=== PATIENT | female | born 1980 | race Caucasian/White ===

== ENCOUNTER 2016-06-06 09:02 | Emergency (ER) | payer OTHER ==
[~2016-06-06] VITALS: Ht 162.6 cm; Wt 74.8 kg
[~2016-06-06 09:02] MED LIST: AMIT25TA PO; CEPH-264 PO; DICY20TA30 PO; METR500T PO; ONDA4TAB10 SL; SUMA50TA3 PO
[2016-06-06] MEDS ORDERED: BUPR300T4 PO (09:17)
[2016-06-06] MEDS ORDERED: PHEN37.5 PO (09:17)
[2016-06-06] MEDS ORDERED: TRAZ50TA15 PO (09:17)
[2016-06-06] MEDS ORDERED: HYDROMORPHONE 2 MG/ML VIAL. ONE (09:23)
[2016-06-06] MEDS ORDERED: ONDANSETRON PF 4 MG/2 ML VIAL. IV ONE (09:30)
[2016-06-06] MEDS: HYDROMORPHONE 2 MG/ML VIAL. IV PRN ×2 (09:30→10:50)
[2016-06-06] MEDS ORDERED: IV NORMAL SALINE 1000ML BAG 1,000 ML IV ONE (09:30)
[2016-06-06 09:31] LABS: BASO % 1 % (0-3); EOS % 0 % (0-3); HEMATOCRIT 37.8 % (36.0-47.0); HEMOGLOBIN 12.9 g/dL (12.0-15.5); LYMPH # 1.4 x10^3/uL (1.0-4.8); LYMPH % 19 % (24-48); MEAN CORPUSCULAR HEMOGLOBIN 29 pg (25-35); MEAN CORPUSCULAR HGB CONC 34 g/dL (31-37); MEAN CORPUSCULAR VOLUME 85 fL (79-100); MONO % 4 % (0-9); NEUT % 76 % (31-73); PLATELET COUNT 272 x10^3/uL (140-400); RED BLOOD COUNT 4.43 x10^6/uL (3.50-5.40); WHITE BLOOD COUNT 7.6 x10^3/uL (4.0-11.0)
[2016-06-06 09:45] LABS: CALCIUM 9.2 mg/dL (8.5-10.1); CREATININE 0.7 mg/dL (0.6-1.0); GFR 95.8; POTASSIUM 3.8 mmol/L (3.5-5.1)
[2016-06-06 09:53] LABS: ALBUMIN 3.8 g/dL (3.4-5.0); DIRECT BILIRUBIN 0.1 mg/dL (0.0-0.2); TOTAL BILIRUBIN 0.9 mg/dL (0.2-1.0); TOTAL PROTEIN 7.8 g/dL (6.4-8.2)
--- NOTE | 2016-06-06 10:42 | PHYS DOC ---
Past Medical History Past Medical History: Constipation, Kidney Stone, Migraines Past Surgical History: Cholecystectomy, Tubal ligation Additional Past Surgical Histo: partial thyroidectomy,d c, ablation,kidney stone removal Alcohol Use: Occasionally Drug Use: None Adult General Chief Complaint Chief Complaint: FLANK PAIN HPI HPI 35-year-old female presenting to the emergency department with right-sided flank pain that is sharp severe radiating into the groin. It started this morning around 7 AM. She comes by EMS today and has received 100 g of fentanyl and 4 mg of Zofran prior to arrival. This did improve her pain. She denies nausea vomiting fevers chills. Review of systems is negative for chest pain shortness of breath. She denies polyuria dysuria or hematuria. She denies vaginal bleeding or being . All other review of systems is negative unless otherwise noted in history of present illness. Review of Systems Review of Systems SEE ABOVE. Current Medications Current Medications Current Medications Medications (Trade) Dose Ordered Sig/Marisol Start Time Stop Time Status Last Admin Dose Admin Hydromorphone HCl (Dilaudid) 2 mg STK-MED ONCE 06/06/16 09:23 06/06/16 09:24 DC Ondansetron HCl 4 mg 4 mg 1X ONCE 06/06/16 09:30 06/06/16 09:31 DC 06/06/16 09:27 4 MG Sodium Chloride (Iv Sodium Chloride 0.9% 1000ml Bag) 1,000 ml @ 1,000 mls/hr 1X ONCE 06/06/16 09:30 06/06/16 10:29 DC 06/06/16 09:32 1,000 MLS/HR Allergies Allergies Allergies Coded Allergies Type Severity Reaction Last Updated Verified ciprofloxacin Allergy Unknown Unknown 06/06/16 Yes sulfamethoxazole Allergy Unknown Unknown 06/06/16 Yes trimethoprim Allergy Unknown Unknown 06/06/16 Yes Physical Exam Physical Exam Constitutional: Well developed, well nourished, no acute distress, non-toxic appearance. [] HENT: Normocephalic, atraumatic, bilateral external ears normal, oropharynx moist, no oral exudates, nose normal. [] Eyes: PERRLA, EOMI, conjunctiva normal, no discharge. Neck: Normal range of motion, no tenderness, supple, no stridor. [] Cardiovascular:Heart rate regular rhythm, no murmur Lungs & Thorax: Bilateral breath sounds clear to auscultation Abdomen: Soft nontender abdomen without rebound tenderness or guarding present. Negative McBurneys point. Negative Guajardo sign. No ecchymosis present. Skin: Warm, dry, no erythema, no rash. Back: No tenderness, mild right CVA tenderness. No ecchymosis lacerations abrasions or erythema of the back or abdomen Extremities: No tenderness, no cyanosis, no clubbing, ROM intact, no edema. Neurologic: Alert and oriented X 3, normal motor function, normal sensory function, no focal deficits noted. [] Psychologic: Affect normal, judgement normal, mood normal. Current Patient Data Vital Signs Vital Signs Date Time Temp Pulse Resp B/P Pulse Ox O2 Delivery O2 Flow Rate FiO2 06/06/16 10:50 18 06/06/16 09:02 72 113/66 97 Room Air Lab Values Laboratory Tests Test 06/06/16 09:09 06/06/16 09:29 White Blood Count 7.6x10^3/uL (4.0-11.0) Red Blood Count 4.43x10^6/uL (3.50-5.40) Hemoglobin 12.9g/dL (12.0-15.5) Hematocrit 37.8% (36.0-47.0) Mean Corpuscular Volume 85fL (79-100) Mean Corpuscular Hemoglobin 29pg (25-35) Mean Corpuscular Hemoglobin Concent 34g/dL (31-37) Red Cell Distribution Width 14.0% (11.5-14.5) Platelet Count 272x10^3/uL (140-400) Neutrophils (%) (Auto) 76% (31-73) H Lymphocytes (%) (Auto) 19% (24-48) L Monocytes (%) (Auto) 4% (0-9) Eosinophils (%) (Auto) 0% (0-3) Basophils (%) (Auto) 1% (0-3) Neutrophils # (Auto) 5.7x10^3uL (1.8-7.7) Lymphocytes # (Auto) 1.4x10^3/uL (1.0-4.8) Monocytes # (Auto) 0.3x10^3/uL (0.0-1.1) Eosinophils # (Auto) 0.0x10^3/uL (0.0-0.7) Basophils # (Auto) 0.0x10^3/uL (0.0-0.2) Sodium Level 139mmol/L (136-145) Potassium Level 3.8mmol/L (3.5-5.1) Chloride Level 103mmol/L (98-107) Carbon Dioxide Level 22mmol/L (21-32) Anion Gap 14 (6-14) Blood Urea Nitrogen 12mg/dL (7-20) Creatinine 0.7mg/dL (0.6-1.0) Estimated GFR (Cockcroft-Gault) 95.8 Glucose Level 127mg/dL (70-99) H Calcium Level 9.2mg/dL (8.5-10.1) Total Bilirubin 0.9mg/dL (0.2-1.0) Direct Bilirubin 0.1mg/dL (0.0-0.2) Aspartate Amino Transferase (AST) 14U/L (15-37) L Alanine Aminotransferase (ALT) 19U/L (14-59) Alkaline Phosphatase 77U/L (46-116) Total Protein 7.8g/dL (6.4-8.2) Albumin 3.8g/dL (3.4-5.0) Lipase 108U/L (73-393) POC Urine HCG, Qualitative Hcg negative (Negative) Laboratory Tests 06/06/16 09:09 Laboratory Tests 06/06/16 09:09 EKG EKG [] Radiology/Procedures Radiology/Procedures [] Course & Med Decision Making Course & Med Decision Making Pertinent Labs and Imaging studies reviewed. (See chart for details) [] 35-year-old female presenting with right-sided flank pain. Triage vital signs pulse normal. Blood pressure normal. Respiratory rate recorded at 28 however this is because the patient appears to be in mild pain. The patient is not having difficulty breathing. Otherwise pertinent physical exam findings shows mild right CVA tenderness with nontender appendix. CBC unremarkable. Chemistry panel unremarkable. test negative. CT abdomen and pelvis performed. 1mm nephrolithiasis seen at the UVJ. On reevaluation the patient's symptoms had improved. She was provided IV saline hydromorphone and Zofran in the emergency department. She was subsequent discharged home to follow up with her PCP with oral pain medication for symptomatic care. Dragon Disclaimer Dragon Disclaimer This electronic medical record was generated, in whole or in part, using a voice recognition dictation system. Departure Departure Impression: Primary Impression: Flank pain Additional Impressions: Flank pain, acute Right flank pain Disposition: 01 HOME, SELF-CARE Condition: STABLE Referrals: NAVDEEP LLANES MD (PCP) Patient Instructions: Flank Pain Additional Instructions: Thank you for allowing us to participate in your care today. Followup with your primary care physician in 3 days if your symptoms do not improve. If you do not have a primary care provider you can ask for a list of our primary care providers. Return to the emergency department you have any new or concerning findings. This should be evaluated by the primary care physician and any necessary consulting services for continued management within a few days after discharge. Return to emergency room if you have any new or concerning symptoms including but not limited to fever, chills, nausea, vomiting, intractable pain, any new rashes, chest pain, shortness of air, uncontrolled bleeding, difficulty breathing, and/or vision loss. You may have been prescribed medication that can change in your level of thinking and ability to operate machinery. These medications include hydrocodone and Ativan. Also, Benadryl has been known to do this as well. Be sure to check with your pharmacist and ask if the medications you've prescribed can affect your level of consciousness. I recommend not operating heavy machinery or driving while on medication such as these. Scripts Hydrocodone Bit/Acetaminophen (Hydrocodone-Apap 5-325 )1 Each Tablet2 Tab PO PRN Q6HRS PRN PAIN #15 TAB Be careful as this medication may cause you to be drowsy or tired. Do not drive on this medication. Prov:FORTINO BELCHER MD 06/06/16 Problem Qualifiers FORTINO EBLCHER MD Jun 06, 2016 10:42
[2016-06-06 10:51] VITALS: BP 118/56
[2016-06-06 11:05] LABS: BILIRUBIN,URINE NEGATIVE (NEG); GLUCOSE,URINE NEGATIVE (NEG); NITRITE,URINE NEGATIVE (NEG); PROTEIN,URINE NEGATIVE (NEG-TRACE); UROBILINOGEN,URINE 0.2 mg/dL (0.2 mg/dL)
--- NOTE | 2016-06-06 11:20 | RAD ---
Indication bilateral flank pain. Right lower quadrant pain. Duration of symptoms 3 hours. History of kidney stones and frequent urinary tract infections. Axial images through the abdomen and pelvis were obtained. Examination was tailored for the detection of renal and/or ureteral calculi. No IV or gastrointestinal contrast was administered. Note is made of a prior examination 11/16/2015. The lung bases are clear. The liver and spleen appear unremarkable. Clips are noted in the gallbladder fossa. No pancreatic abnormality is seen. The adrenal glands appear unremarkable. There is a solitary 4 mm left renal calculus similar to the previous exam. On the right there are no renal calculi. There is, however, moderately severe hydronephrosis and hydroureter to the level of a 1 to 2 mm calculus in the distal right ureter just above or at the UVJ. No additional finding is seen in the abdomen. In the pelvis the appendix is seen and appears unremarkable. An additional finding in the pelvis apart from the distal right ureteral calculus is not seen. IMPRESSION: Minute 1 to 2 mm right ureteral calculus at or near the UVJ with associated moderately high-grade obstructive uropathy. Unchanged left ureteral calculus PQRS Compliance Statement: One or more of the following individualized dose reduction techniques were utilized for this examination: 1. Automated exposure control 2. Adjustment of the mA and/or kV according to patient size 3. Use of iterative reconstruction technique
[2016-06-06 11:28] LABS: BACTERIA,URINE FEW /HPF (0-FEW); SQUAMOUS EPITHELIAL CELL,UR MANY /LPF
[2016-06-06] MEDS ORDERED: HYDR-2666 PO (11:30)
[2016-06-06] MEDS ORDERED: ONDA4TAB10 SL (11:33)
== END 2016-06-06 12:16 | disposition home or self-care (01) ==
LOC: ER 09:02
DX: R10.31 Right lower quadrant pain (principal); G43.909 Migraine, unspecified, not intractable, without status migrainosus; Z88.1 Allergy status to other antibiotic agents; Z88.2 Allergy status to sulfonamides; Z90.49 Acquired absence of other specified parts of digestive tract; Z87.442 Personal history of urinary calculi
CPT/HCPCS: 36415; 74176; 80048; 80076; 81001; 81025; 83690; 85027; 87086; 96361; 96374; 96375; 96376; 99285; J1170; J2405; J7030

== ENCOUNTER → 2016-06-09 | Outpatient (CLI) | payer OTHER ==
[2016-06-06 10:51] VITALS: BP 118/56
[~2016-06-09] MED LIST changes: +BUPR300T4 PO; +HYDR-2666 PO; +PHEN37.5 PO; +TRAZ50TA15 PO
[2016-06-09 11:15] LABS: BASO % 1 % (0-3); EOS % 1 % (0-3); HEMATOCRIT 40.1 % (36.0-47.0); LYMPH # 1.7 x10^3/uL (1.0-4.8); LYMPH % 25 % (24-48); MEAN CORPUSCULAR HEMOGLOBIN 29 pg (25-35); MEAN CORPUSCULAR HGB CONC 32 g/dL (31-37); MEAN CORPUSCULAR VOLUME 88 fL (79-100); MONO % 5 % (0-9); NEUT % 70 % (31-73); PLATELET COUNT 282 x10^3/uL (140-400); RED BLOOD COUNT 4.54 x10^6/uL (3.50-5.40); RED CELL DISTRIBUTION WIDTH 14.1 % (11.5-14.5); WHITE BLOOD COUNT 7.1 x10^3/uL (4.0-11.0)
[2016-06-09 11:34] LABS: CHOLESTEROL/HDL RATIO 4.3
[2016-06-09 11:44] LABS: FREE T4 1.13 ng/dL (0.76-1.46)
== END | disposition home or self-care (01) ==
LOC: LAB 10:53
PROVIDERS: ATTEND Obstetrics & Gynecology
DX: Z01.411 Encounter for gynecological examination (general) (routine) with abnormal findings (principal); N93.8 Other specified abnormal uterine and vaginal bleeding
CPT/HCPCS: 36415; 80061; 84439; 84443; 85027

== ENCOUNTER → 2016-10-15 | Outpatient (CLI) | payer OTHER ==
[~2016-10-15] MED LIST changes: -HYDR-2666 PO; +HYDR-2758 PO
--- NOTE | 2016-10-15 17:55 | KCIC ---
MRI Brain without contrast History: Worsening migraine headaches in recent months Technique: Multiplanar, multisequential noncontrast MR imaging was performed of the brain. Contrast: None Comparison: None Findings: There is no evidence of an acute infarct or cytotoxic edema. The ventricles, sulci, and cisterns are within normal limits in size and configuration. There is no significant midline shift, mass effect, or focal abnormal extra-axial fluid collection. There are a few scattered small foci of T2 and FLAIR hyperintense signal abnormality of the bifrontal deep white matter. There is no significant hemosiderin deposition of the brain parenchyma. There is prominent perivascular space of the inferior left basal ganglia. There is preservation of the major intracranial flow-voids at the skull base. The mastoid air cells are aerated. The cerebellar tonsils are normal in location. There is no significant abnormality of the pineal gland or pituitary gland. Paranasal sinuses are overall aerated. There is preserved marrow signal of the clivus. Impression: 1. There are a few scattered small foci of T2 and FLAIR hyperintense signal of the bifrontal white matter. White matter changes can be seen in patients with migraine headaches. Electronically signed by: Jose Luis Zavala MD (10/15/2016 5:52 PM) [facility]
== END | disposition home or self-care (01) ==
LOC: KCIC MRI 16:58
PROVIDERS: ATTEND Internal Medicine
DX: G43.909 Migraine, unspecified, not intractable, without status migrainosus (principal); R90.82 White matter disease, unspecified
CPT/HCPCS: 70551

== ENCOUNTER → 2017-04-21 | Outpatient (CLI) | payer OTHER ==
[2017-04-21 11:12] LABS: ADD MAN DIFF? NO
[2017-04-21 11:17] LABS: BASO # 0.1 x10^3/uL (0.0-0.2); BASO % 1 % (0-3); EOS # 0.1 x10^3/uL (0.0-0.7); EOS % 1 % (0-3); HEMATOCRIT 36.7 % (36.0-47.0); HEMOGLOBIN 12.2 g/dL (12.0-15.5); LYMPH # 2.3 x10^3/uL (1.0-4.8); LYMPH % 29 % (24-48); MEAN CORPUSCULAR HEMOGLOBIN 29 pg (25-35); MEAN CORPUSCULAR HGB CONC 33 g/dL (31-37); MEAN CORPUSCULAR VOLUME 86 fL (79-100); MONO # 0.4 x10^3/uL (0.0-1.1); MONO % 5 % (0-9); NEUT % 64 % (31-73); PLATELET COUNT 266 x10^3/uL (140-400); RED BLOOD COUNT 4.25 x10^6/uL (3.50-5.40); RED CELL DISTRIBUTION WIDTH 13.9 % (11.5-14.5); WHITE BLOOD COUNT 7.8 x10^3/uL (4.0-11.0)
[2017-04-21 11:46] LABS: FREE T4 1.11 ng/dL (0.76-1.46)
== END | disposition home or self-care (01) ==
LOC: LAB 10:54
DX: E03.9 Hypothyroidism, unspecified (principal); N93.9 Abnormal uterine and vaginal bleeding, unspecified
CPT/HCPCS: 36415; 84439; 84443; 85025

== ENCOUNTER 2017-05-27 07:09 | Observation (INO) | payer OTHER ==
[~2017-05-27 07:09] MED LIST changes: -AMIT25TA PO; -BUPR300T4 PO; -CEPH-264 PO; -DICY20TA30 PO; -HYDR-2758 PO; +LIDOCAINE 1% PF 2 ML VIAL. ID; +LIDOCAINE 1%/EPI 1:100,000 20 ML VIAL.; -METR500T PO; +MORPHINE SULFATE 4 MG/ML DISP.SYRIN. IV; -ONDA4TAB10 SL; +ONDANSETRON PF 4 MG/2 ML VIAL. IV; -PHEN37.5 PO; -SUMA50TA3 PO; +SURGICEL HEMOSTAT 4X8 EACH.; -TRAZ50TA15 PO; +fentaNYL PF VIAL 100 MCG/2 ML VIAL IV
[2017-05-27 07:31] LABS: NEG OBC UR NEG; POS OBC UR POS; U PREG PATIENT NEGATIVE (NEG)
[2017-05-27] MEDS: IV RINGERS,LACTATED 1000ML 1,000 ML IV ×2 (07:47→11:24)
[2017-05-27 07:48] LABS: ADD MAN DIFF? NO
[2017-05-27] MEDS: SCOPOLAMINE 1.5MG PATCH. TD (07:48)
[2017-05-27 07:52] LABS: BASO % 1 % (0-3); EOS # 0.1 x10^3/uL (0.0-0.7); EOS % 1 % (0-3); HEMATOCRIT 37.7 % (36.0-47.0); HEMOGLOBIN 12.4 g/dL (12.0-15.5); LYMPH # 1.5 x10^3/uL (1.0-4.8); LYMPH % 26 % (24-48); MEAN CORPUSCULAR HEMOGLOBIN 29 pg (25-35); MEAN CORPUSCULAR HGB CONC 33 g/dL (31-37); MEAN CORPUSCULAR VOLUME 87 fL (79-100); MONO # 0.5 x10^3/uL (0.0-1.1); MONO % 9 % (0-9); NEUT # 3.6 x10^3uL (1.8-7.7); NEUT % 64 % (31-73); PLATELET COUNT 240 x10^3/uL (140-400); RED BLOOD COUNT 4.35 x10^6/uL (3.50-5.40); RED CELL DISTRIBUTION WIDTH 13.6 % (11.5-14.5); WHITE BLOOD COUNT 5.7 x10^3/uL (4.0-11.0)
[2017-05-27] MEDS ORDERED: ceFAZolin 2GM PREMIX 2 GM/50 ML BAG IV (08:00)
[2017-05-27] MEDS ORDERED: SEVOFLURANE 61 TO 120 MINUTES. IH (08:32)
[2017-05-27] MEDS ORDERED: GLYCOPYRROLATE 1 MG/5 ML VIAL. (08:33)
[2017-05-27] MEDS ORDERED: MIDAZOLAM HCL/PF 2 MG/2 ML VIAL. (08:33)
[2017-05-27] MEDS ORDERED: fentaNYL PF VIAL 100 MCG/2 ML VIAL (08:33)
[2017-05-27] MEDS ORDERED: ROCURONIUM 50 MG/5 ML VIAL. (08:33)
[2017-05-27] MEDS ORDERED: NEOSTIGMINE 10 MG/10 ML VIAL. (08:33)
[2017-05-27] MEDS: BUPIVACAINE-EPI 0.25%-1:200000 50 ML VIAL. (10:21)
[2017-05-27] MEDS: ESTROGENS, CONJ VAGINAL CREAM 30GM TUBE. (10:50)
[2017-05-27] MEDS ORDERED: diphenhydrAMINE HCL 25 MG CAPSULE PO (11:15)
[2017-05-27] MEDS ORDERED: PROCHLORPERAZINE 10 MG/2 ML VIAL. IV (11:15)
[2017-05-27] MEDS ORDERED: ONDANSETRON PF 4 MG/2 ML VIAL. IV (11:15)
[2017-05-27] MEDS ORDERED: CALCIUM CARBONATE 500 MG TAB.CHEW PO (11:15)
[2017-05-27] MEDS ORDERED: 0.9 % SODIUM CHLORIDE 10 ML DISP.SYRIN. IV (11:15)
[2017-05-27] MEDS ORDERED: diphenhydrAMINE 50 MG/ML VIAL IV (11:15)
[2017-05-27] MEDS ORDERED: ZOLPIDEM 5 MG TABLET. PO (11:15)
[2017-05-27] MEDS ORDERED: DEXTROSE 50% 25 GM / 50ML DISP.SYRIN. IV (11:15)
[2017-05-27] MEDS: PROCHLORPERAZINE 10 MG/2 ML VIAL. IV (11:24)
[2017-05-27] MEDS: fentaNYL PF VIAL 100 MCG/2 ML VIAL IV ×3 (11:25→12:57)
[2017-05-27] MEDS: GABAPENTIN 300 MG CAPSULE. PO ×2 (14:22→22:50)
[2017-05-27] MEDS: SIMETHICONE 80 MG TAB.CHEW PO (14:22)
[2017-05-27] MEDS: KETOROLAC 30 MG/ML INJ. IV (14:23)
[2017-05-27] MEDS: oxyCODONE/APAP 5/325 1 TAB TABLET PO ×2 (14:24→19:27)
[2017-05-28] MEDS: GABAPENTIN 300 MG CAPSULE. PO (06:10)
[2017-05-28 06:11] LABS: ADD MAN DIFF? NO
[2017-05-28] MEDS: oxyCODONE/APAP 5/325 1 TAB TABLET PO ×3 (06:11→13:08)
[2017-05-28 06:25] LABS: BASO % 0 % (0-3); EOS % 0 % (0-3); HEMATOCRIT 33.5 % (36.0-47.0); HEMOGLOBIN 11.3 g/dL (12.0-15.5); LYMPH # 2.1 x10^3/uL (1.0-4.8); LYMPH % 20 % (24-48); MEAN CORPUSCULAR HEMOGLOBIN 29 pg (25-35); MEAN CORPUSCULAR HGB CONC 34 g/dL (31-37); MEAN CORPUSCULAR VOLUME 87 fL (79-100); MONO # 0.7 x10^3/uL (0.0-1.1); MONO % 6 % (0-9); NEUT # 7.9 x10^3uL (1.8-7.7); NEUT % 73 % (31-73); PLATELET COUNT 248 x10^3/uL (140-400); RED BLOOD COUNT 3.84 x10^6/uL (3.50-5.40); RED CELL DISTRIBUTION WIDTH 13.8 % (11.5-14.5); WHITE BLOOD COUNT 10.8 x10^3/uL (4.0-11.0)
[2017-05-28] MEDS: SIMETHICONE 80 MG TAB.CHEW PO (08:05)
== END 2017-05-28 14:39 | disposition home or self-care (01) ==
LOC: SURG 07:09 → 3 NORTH 12:04
DX: D25.9 Leiomyoma of uterus, unspecified (principal); N94.6 Dysmenorrhea, unspecified; N83.202 Unspecified ovarian cyst, left side; N83.201 Unspecified ovarian cyst, right side
CPT/HCPCS: 36415; 81025; 85025; 86850; 86900; 86901; 88307; 96374; 96375; A4215; G0378; G0379; J0690; J0780; J1885; J2250; J2710; J3010; J3490; J7030; J7120

== ENCOUNTER → 2017-09-06 | Outpatient (CLI) | payer OTHER ==
[2017-09-06 14:08] LABS: ALBUMIN 3.8 g/dL (3.4-5.0); ALBUMIN/GLOBULIN RATIO 0.9 (1.0-1.7); ALK PHOS 102 U/L (46-116); ALT (SGPT) 20 U/L (14-59); ANION GAP 7 (6-14); AST (SGOT) 13 U/L (15-37); BLOOD UREA NITROGEN 16 mg/dL (7-20); BUN/CREATININE RATIO 20 (6-20); CALCIUM 9.1 mg/dL (8.5-10.1); CARBON DIOXIDE 29 mmol/L (21-32); CHLORIDE 103 mmol/L (98-107); CHOLESTEROL 233 mg/dL (0-200); CREATININE 0.8 mg/dL (0.6-1.0); GFR 81.2; GLUCOSE 99 mg/dL (70-99); HDLC 44 mg/dL (40-60); LDLC 159 mg/dL (0-100); NON-HDL CHOLESTEROL 189 mg/dL (0-129); POTASSIUM 4.1 mmol/L (3.5-5.1); SODIUM 139 mmol/L (136-145); TOTAL BILIRUBIN 0.5 mg/dL (0.2-1.0); TOTAL PROTEIN 8.1 g/dL (6.4-8.2); TRIGLYCERIDES 151 mg/dL (0-150); VLDLC 30 mg/dL (0-40)
[2017-09-06 14:09] LABS: CHOLESTEROL/HDL RATIO 5.3
[2017-09-06 14:21] LABS: THYROID STIM HORMONE (TSH) 0.738 uIU/mL (0.358-3.74)
[2017-09-06 14:21] LABS: FREE T4 1.11 ng/dL (0.76-1.46)
[2017-09-06 15:19] LABS: BILIRUBIN,URINE NEGATIVE (NEG); CLARITY,URINE CLEAR; COLOR,URINE YELLOW; GLUCOSE,URINE NEGATIVE (NEG); NITRITE,URINE NEGATIVE (NEG); PROTEIN,URINE NEGATIVE (NEG-TRACE); UROBILINOGEN,URINE 0.2 mg/dL (0.2 mg/dL)
[2017-09-06 15:31] LABS: BACTERIA,URINE MANY /HPF (0-FEW); RBC,URINE 20-40 /HPF (0-2); SQUAMOUS EPITHELIAL CELL,UR MANY /LPF; WBC,URINE >40 /HPF (0-4)
[2017-09-07 05:25] LABS: THYROXINE 9.5 ug/dL (4.5-12.0)
== END | disposition home or self-care (01) ==
LOC: LAB 13:27
DX: Z13.220 Encounter for screening for lipoid disorders (principal); E03.9 Hypothyroidism, unspecified; R53.83 Other fatigue; R06.02 Shortness of breath
CPT/HCPCS: 36415; 80053; 80061; 81001; 82533; 84436; 84439; 84443; 87086

== ENCOUNTER 2018-01-01 11:22 | Emergency (ER) | payer OTHER ==
[~2018-01-01] VITALS: Ht 162.6 cm; Wt 77.1 kg
[~2018-01-01 11:22] MED LIST changes: +AMIT25TA PO; +BUPR300T4 PO; +CEPH-264 PO; +DICY20TA30 PO; +DOCU-109 PO; +ESCITALOPRAM OX10 MG PO; +HYDR-2758 PO; +IBUP-1060 PO; +LEVO75TA5 PO; -LIDOCAINE 1% PF 2 ML VIAL. ID; -LIDOCAINE 1%/EPI 1:100,000 20 ML VIAL.; +METR500T PO; -MORPHINE SULFATE 4 MG/ML DISP.SYRIN. IV; +ONDA4TAB10 SL; -ONDANSETRON PF 4 MG/2 ML VIAL. IV; +OXYC-323 PO; +PHEN37.5 PO; +SUMA50TA3 PO; -SURGICEL HEMOSTAT 4X8 EACH.; +TRAZ-85 PO; -fentaNYL PF VIAL 100 MCG/2 ML VIAL IV
--- NOTE | 2018-01-01 11:52 | PHYS DOC ---
Past Medical History Past Medical History: Constipation, Kidney Stone, Migraines Past Surgical History: Cholecystectomy, Tubal ligation Additional Past Surgical Histo: partial thyroidectomy,d c, ablation,kidney stone removal Alcohol Use: Occasionally Drug Use: None Adult General Chief Complaint Chief Complaint: HEADACHE HPI HPI Patient is a 37 year old female who presents with migraine. The patient has been having this headache over the last 5 days. She saw her primary care doctor yesterday and was recommended to start Topamax but the patient has not yet started the medication. She does have a history of chronic migraine headaches. This headache feels similar to her prior episodes but more intense. Additionally , her headaches normally not last this long. No fever or chills. No new rashes or neck stiffness. She does have some nausea but no vomiting. She does have photophobia. 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 Review of Systems Review of Systems Constitutional: Denies fever Eyes: Denies change in visual acuity, redness HENT: Denies nasal congestion or sore throat Respiratory: Denies cough or shortness of breath Cardiovascular: No additional information not addressed in HPI GI: Denies abdominal pain : + hx of hematuria with urology referral currently pending Musculoskeletal: Denies back pain o Integument: Denies rash or skin lesions Neurologic: Denies focal neuro complaints All other systems were reviewed and found to be within normal limits, except as documented in this note. Current Medications Current Medications Current Medications Medications (Trade) Dose Ordered Sig/Marisol Start Time Stop Time Status Last Admin Dose Admin Diphenhydramine HCl (Benadryl) 25 mg 1X ONCE 01/01/18 12:00 01/01/18 12:01 DC 01/01/18 12:10 100 MG Ketorolac Tromethamine (Toradol 30mg Vial) 30 mg 1X ONCE 01/01/18 12:00 01/01/18 12:01 DC 01/01/18 12:11 30 MG Morphine Sulfate (Morphine Sulfate) 2 mg 1X ONCE 01/01/18 13:45 01/01/18 13:46 DC 01/01/18 13:45 2 MG Ondansetron HCl (Zofran) 4 mg 1X ONCE 01/01/18 14:00 01/01/18 14:01 DC 01/01/18 14:02 4 MG Prochlorperazine Edisylate (Compazine) 10 mg 1X ONCE 01/01/18 12:00 01/01/18 12:01 DC 01/01/18 12:00 10 MG Sodium Chloride 1,000 ml @ 1,000 mls/hr 1X ONCE 01/01/18 12:00 01/01/18 12:59 DC 01/01/18 12:00 1,000 MLS/HR Allergies Allergies Allergies Coded Allergies Type Severity Reaction Last Updated Verified ciprofloxacin Allergy Intermediate Unknown 05/27/17 Yes sulfamethoxazole Allergy Intermediate Unknown 05/27/17 Yes trimethoprim Allergy Intermediate Unknown 05/27/17 Yes Physical Exam Physical Exam Constitutional: Well developed, well nourished, no acute distress HENT: Normocephalic, atraumatic, bilateral external ears normal, oropharynx moist Eyes: PERRLA, EOMI, conjunctiva normal Neck: Normal range of motion, no tenderness Cardiovascular:Heart rate regular rhythm, no murmur Lungs & Thorax: Bilateral breath sounds clear to auscultation Abdomen: Bowel sounds normal, soft Skin: Warm, dry, no erythema, no rash Neurologic: Alert and oriented X 3, normal neurologic exam. CN II-XII intact Psychologic: Affect normal Current Patient Data Vital Signs Vital Signs Date Time Temp Pulse Resp B/P (MAP) Pulse Ox O2 Delivery O2 Flow Rate FiO2 01/01/18 13:45 16 100 Room Air 01/01/18 12:15 90 01/01/18 11:31 98.1 98/65 (76) 98.1 Lab Values Laboratory Tests Test 01/01/18 11:50 White Blood Count 6.1 x10^3/uL (4.0-11.0) Red Blood Count 3.85 x10^6/uL (3.50-5.40) Hemoglobin 11.1 g/dL (12.0-15.5) L Hematocrit 32.7 % (36.0-47.0) L Mean Corpuscular Volume 85 fL (79-100) Mean Corpuscular Hemoglobin 29 pg (25-35) Mean Corpuscular Hemoglobin Concent 34 g/dL (31-37) Red Cell Distribution Width 14.2 % (11.5-14.5) Platelet Count 220 x10^3/uL (140-400) Neutrophils (%) (Auto) 63 % (31-73) Lymphocytes (%) (Auto) 30 % (24-48) Monocytes (%) (Auto) 6 % (0-9) Eosinophils (%) (Auto) 1 % (0-3) Basophils (%) (Auto) 0 % (0-3) Neutrophils # (Auto) 3.9 x10^3uL (1.8-7.7) Lymphocytes # (Auto) 1.8 x10^3/uL (1.0-4.8) Monocytes # (Auto) 0.4 x10^3/uL (0.0-1.1) Eosinophils # (Auto) 0.1 x10^3/uL (0.0-0.7) Basophils # (Auto) 0.0 x10^3/uL (0.0-0.2) Sodium Level 143 mmol/L (136-145) Potassium Level 3.5 mmol/L (3.5-5.1) Chloride Level 103 mmol/L (98-107) Carbon Dioxide Level 30 mmol/L (21-32) Anion Gap 10 (6-14) Blood Urea Nitrogen 19 mg/dL (7-20) Creatinine 0.7 mg/dL (0.6-1.0) Estimated GFR (Cockcroft-Gault) 94.7 Glucose Level 91 mg/dL (70-99) Calcium Level 8.8 mg/dL (8.5-10.1) Laboratory Tests 01/01/18 11:50 Laboratory Tests 01/01/18 11:50 EKG EKG [] Radiology/Procedures Radiology/Procedures [] Course & Med Decision Making Course & Med Decision Making Pertinent Labs and Imaging studies reviewed. (See chart for details) 11:45: Patient seen and examined. Standard MARTINS meds ordered. Pt is s/p hysterectomy/oophorectomy so no UCG ordered. Given her dizziness, cbc, bmp ordered. Patient presented with headache that was typical for her migraine syndromes. In the ER, she was given Compazine, Benadryl, Toradol. These are highly relieved her symptoms. After this, she was given a dose of morphine which did improve her symptoms enough that she was comfortable with discharge home. At home, she has no abortive therapies. She does have Topamax which she has not started yet. She is given some Fioricet to use at home. She has previously failed treatment with triptan's. Patient was discharged to home. She felt better. She was encouraged to follow-up with her primary doctor. Cassia Disclaimer Cassia Disclaimer This electronic medical record was generated, in whole or in part, using a voice recognition dictation system. Departure Departure Referrals: CHEY PHAM MD (PCP) Scripts Butalb/Acetaminophen/Caffeine ([id number] 50-300-40) 1 Each Capsule 1-2 EACH PO BID PRN for MIGRAINE HEADACHE, #20 CAP Prov: KERRY DIANA DO 01/01/18 KERRY DIANA DO Jan 01, 2018 11:52
[2018-01-01] MEDS ORDERED: IV NORMAL SALINE 1000ML BAG 1,000 ML IV ONE (12:00)
[2018-01-01] MEDS ORDERED: PROCHLORPERAZINE 10 MG/2 ML VIAL. IV ONE (12:00)
[2018-01-01] MEDS ORDERED: KETOROLAC 30 MG/ML VIAL. IV ONE (12:00)
[2018-01-01] MEDS ORDERED: diphenhydrAMINE 50 MG/ML VIAL IVP ONE (12:00)
[2018-01-01 12:06] LABS: BASO % 0 % (0-3); EOS # 0.1 x10^3/uL (0.0-0.7); EOS % 1 % (0-3); HEMATOCRIT 32.7 % (36.0-47.0); HEMOGLOBIN 11.1 g/dL (12.0-15.5); LYMPH # 1.8 x10^3/uL (1.0-4.8); LYMPH % 30 % (24-48); MEAN CORPUSCULAR HEMOGLOBIN 29 pg (25-35); MEAN CORPUSCULAR HGB CONC 34 g/dL (31-37); MEAN CORPUSCULAR VOLUME 85 fL (79-100); MONO # 0.4 x10^3/uL (0.0-1.1); MONO % 6 % (0-9); NEUT # 3.9 x10^3uL (1.8-7.7); NEUT % 63 % (31-73); PLATELET COUNT 220 x10^3/uL (140-400); RED BLOOD COUNT 3.85 x10^6/uL (3.50-5.40); RED CELL DISTRIBUTION WIDTH 14.2 % (11.5-14.5); WHITE BLOOD COUNT 6.1 x10^3/uL (4.0-11.0)
[2018-01-01 12:15] VITALS: BP 98/65
[2018-01-01 12:22] LABS: CALCIUM 8.8 mg/dL (8.5-10.1); CREATININE 0.7 mg/dL (0.6-1.0); GFR 94.7; POTASSIUM 3.5 mmol/L (3.5-5.1)
[2018-01-01] MEDS ORDERED: MORPHINE SULFATE 10 MG/ML VIAL. IV ONE (12:30)
[2018-01-01] MEDS ORDERED: MORPHINE SULFATE 2 MG/ML VIAL. IV ONE (13:45)
[2018-01-01] MEDS ORDERED: ONDANSETRON PF 4 MG/2 ML VIAL. IV ONE (14:00)
[2018-01-01] MEDS ORDERED: BUTA1CAP57 PO (14:32)
== END 2018-01-01 14:40 | disposition home or self-care (01) ==
LOC: ER 11:22
DX: G43.909 Migraine, unspecified, not intractable, without status migrainosus (principal); R42 Dizziness and giddiness; E86.0 Dehydration; Z88.1 Allergy status to other antibiotic agents; Z88.2 Allergy status to sulfonamides
CPT/HCPCS: 36415; 80048; 85025; 96361; 96374; 96375; 96376; 99284; J0780; J1200; J1885; J2270; J2405; J7030

== ENCOUNTER 2018-02-06 13:01 | Emergency (ER) | payer OTHER ==
[~2018-02-06] VITALS: Ht 162.6 cm; Wt 72.6 kg
[~2018-02-06 13:01] MED LIST changes: +BUTA1CAP57 PO; -HYDR-2758 PO; +HYDR-2761 PO; -OXYC-323 PO; +OXYC1TAB15 PO
[2018-02-06 13:10] VITALS: BP 101/63
--- NOTE | 2018-02-06 13:25 | PHYS DOC ---
Past Medical History Past Medical History: Constipation, Kidney Stone, Migraines Past Surgical History: Cholecystectomy, Hysterectomy, Tubal ligation Additional Past Surgical Histo: partial thyroidectomy,D&C,UTERINE ablation, kidney stone removal Alcohol Use: Occasionally Drug Use: None Adult General Chief Complaint Chief Complaint: OTHER COMPLAINTS [facility] Patient is a 37-year-old female who presents to the emergency department for evaluation. She states that last week, she began having "Bladder spasms" along with frequent urination. She states that her urine appeared cloudy but she has not had any dysuria. She took some [id number] Azo on Wednesday which helped improve her symptoms, and she felt better yesterday but this morning the pain and spasms return. She did take an Azo this morning as well. She states she has chronic back pain but has not noted any flank or abdominal pain other than her bladder spasms. She has not had any gynecological symptoms, and has had a hysterectomy in the past. She denies any fevers or chills. She has had some urinary frequency. She has a history of kidney stones as well in the past. There are no alleviating or exacerbating factors to the patient's symptoms except as noted above. Review of Systems Review of Systems Constitutional: Denies fever or chills [] Eyes: Denies change in visual acuity, redness, or eye pain [] HENT: Denies nasal congestion or sore throat [] Respiratory: Denies cough or shortness of breath [] Cardiovascular: The patient denies any shortness of breath, chest pain, palpitations, or orthopnea[] GI: Denies abdominal pain, nausea, vomiting, bloody stools or diarrhea [] : No additional information not addressed in [facility] [] Musculoskeletal: Denies back pain or joint pain [] Integument: Denies rash or skin lesions [] Neurologic: Denies headache, focal weakness or sensory changes [] Endocrine: Denies polyuria or polydipsia [] All other systems were reviewed and found to be within normal limits, except as documented in this note. Allergies Allergies Allergies Coded Allergies Type Severity Reaction Last Updated Verified ciprofloxacin Allergy Intermediate Unknown 05/27/17 Yes sulfamethoxazole Allergy Intermediate Unknown 05/27/17 Yes trimethoprim Allergy Intermediate Unknown 05/27/17 Yes Physical Exam Physical Exam PHYSICAL EXAM: CONSTITUTIONAL: Well developed, well nourished HEAD: normocephalic, atraumatic EENT: PERRL, EOMI. Conjunctivae normal color, sclerae non-icteric; moist mucous membranes. NECK: Supple, non-tender; no meningismus. LUNGS: Lungs CTA, breathing even and unlabored. Normal air movement. HEART: Regular rate and rhythm, no murmur CHEST: No deformity; non-tender ABDOMEN: The abdomen is soft, there is mild superpubic tenderness to palpation, the remainder the abdomen is soft non-tender, no masses or bruits. EXTREM: Normal ROM; no deformity, no calf tenderness. Normal pulses palpable in all extremities. There is no pedal edema. SKIN: No rash; no diaphoresis NEURO: Alert; normal speech and cognition; CN's grossly intact; strength grossly intact without focal deficit. BACK: No CVA TTP. Current Patient Data Vital Signs Vital Signs Date Time Temp Pulse Resp B/P (MAP) Pulse Ox O2 Delivery O2 Flow Rate FiO2 02/06/18 13:10 97.9 99 20 101/63 (76) 98 Room Air 97.9 Lab Values Laboratory Tests Test 02/06/18 13:25 Urine Collection Type Unknown Urine Color Yellow Urine Clarity Turbid Urine pH 5.5 Urine Specific [place] 1.020 Urine Protein 100 mg/dL (NEG-TRACE) Urine Glucose (UA) Negative mg/dL (NEG) Urine Ketones (Stick) Negative mg/dL (NEG) Urine Blood Large (NEG) Urine Nitrite Negative (NEG) Urine Bilirubin Negative (NEG) Urine Urobilinogen Dipstick 0.2 mg/dL (0.2 mg/dL) Urine Leukocyte Esterase Large (NEG) Urine RBC 1-2 /HPF (0-2) Urine WBC >40 /HPF (0-4) Urine Bacteria Moderate /HPF (0-FEW) EKG EKG [] Radiology/Procedures Radiology/Procedures [2:20 PM:Patient remains stable. I discussed test results, the need for close follow-up, and return precautions.] Course & Med Decision Making Course & Med Decision Making Pertinent Lab studies reviewed. (See chart for details) [] Dragon Disclaimer Dragon Disclaimer This electronic medical record was generated, in whole or in part, using a voice recognition dictation system. Departure Departure Impression: Primary Impression: Urinary tract infection Disposition: 01 HOME, SELF-CARE Condition: STABLE Referrals: CHEY PHAM MD (PCP) Patient Instructions: Urinary Tract Infection Scripts Phenazopyridine Hcl (PYRIDIUM) 200 Mg Tablet 200 MG PO BID for 3 Days, #6 TAB Prov: ANGELA CASTORENA MD 02/06/18 Nitrofurantoin Monohyd/M-Cryst (MACROBID 100 MG CAPSULE) 100 Mg Capsule 1 CAP PO BID, #14 CAP Prov: ANGELA CASTORENA MD 02/06/18 ANGELA CASTORENA MD Feb 06, 2018 13:25
[2018-02-06 13:36] LABS: BILIRUBIN,URINE NEGATIVE (NEG); CLARITY,URINE TURBID; COLOR,URINE YELLOW; NITRITE,URINE NEGATIVE (NEG); PH,URINE 5.5; PROTEIN,URINE 100 mg/dL (NEG-TRACE); UROBILINOGEN,URINE 0.2 mg/dL (0.2 mg/dL)
[2018-02-06 14:10] LABS: BACTERIA,URINE MODERATE /HPF (0-FEW); WBC,URINE >40 /HPF (0-4)
[2018-02-06] MEDS ORDERED: PHEN-318 PO (14:22)
[2018-02-06] MEDS ORDERED: NITR100C62 PO (14:22)
== END 2018-02-06 14:35 | disposition home or self-care (01) ==
LOC: ER 13:01
DX: N39.0 Urinary tract infection, site not specified (principal); G43.909 Migraine, unspecified, not intractable, without status migrainosus; Z90.49 Acquired absence of other specified parts of digestive tract; Z90.710 Acquired absence of both cervix and uterus; Z98.51 Tubal ligation status; Z87.442 Personal history of urinary calculi; Z98.890 Other specified postprocedural states; Z88.1 Allergy status to other antibiotic agents; Z88.2 Allergy status to sulfonamides
CPT/HCPCS: 81001; 87086; 99283

== ENCOUNTER 2018-11-06 21:07 | Inpatient (IN) | payer OTHER ==
[~2018-11-06] VITALS: Ht 170.2 cm; Wt 73.2 kg
[~2018-11-06 21:07] MED LIST changes: +NITR100C62 PO; +PHEN-318 PO; +TRAZ-118 PO; -TRAZ-85 PO
[2018-11-06 21:59] LABS: BASO # 0.1 x10^3/uL (0.0-0.2); BASO % 1 % (0-3); EOS # 0.1 x10^3/uL (0.0-0.7); EOS % 1 % (0-3); HEMATOCRIT 38.6 % (36.0-47.0); HEMOGLOBIN 12.9 g/dL (12.0-15.5); LYMPH # 2.4 x10^3/uL (1.0-4.8); LYMPH % 29 % (24-48); MEAN CORPUSCULAR HEMOGLOBIN 29 pg (25-35); MEAN CORPUSCULAR HGB CONC 33 g/dL (31-37); MEAN CORPUSCULAR VOLUME 86 fL (79-100); MONO # 0.4 x10^3/uL (0.0-1.1); MONO % 5 % (0-9); NEUT # 5.1 x10^3/uL (1.8-7.7); NEUT % 63 % (31-73); PLATELET COUNT 262 x10^3/uL (140-400); RED BLOOD COUNT 4.52 x10^6/uL (3.50-5.40); RED CELL DISTRIBUTION WIDTH 14.5 % (11.5-14.5); WHITE BLOOD COUNT 8.1 x10^3/uL (4.0-11.0)
[2018-11-06 22:06] LABS: PROTHROMBIN TIME PATIENT 12.8 SEC (11.7-14.0)
[2018-11-06 22:07] LABS: CALCIUM 8.5 mg/dL (8.5-10.1); CREATININE 0.7 mg/dL (0.6-1.0); GFR 94.2; POTASSIUM 3.5 mmol/L (3.5-5.1)
[2018-11-06 22:11] LABS: ACETAMIN < 2 mcg/ml (10-30); ETHANOL < 10 mg/dL (0-10); SALIC < 2.8 mg/dL (2.8-20.0)
[2018-11-06 22:13] LABS: ALBUMIN 3.6 g/dL (3.4-5.0); ALBUMIN/GLOBULIN RATIO 0.9 (1.0-1.7); MAGNESIUM 1.9 mg/dL (1.8-2.4); TOTAL BILIRUBIN 1.1 mg/dL (0.2-1.0); TOTAL PROTEIN 7.6 g/dL (6.4-8.2)
[2018-11-06] MEDS ORDERED: IV NORMAL SALINE 1000ML BAG 1,000 ML IV ONE ×2 (22:45→23:30)
--- NOTE | 2018-11-06 22:56 | PHYS DOC ---
Past Medical History Past Medical History: Depression, Hypothyroid Past Surgical History: Cholecystectomy, Hysterectomy, Tubal ligation Additional Past Surgical Histo: partial thyroidectomy,D&C,UTERINE ablation,kidney stone removal Alcohol Use: Occasionally Drug Use: None Adult General Chief Complaint Chief Complaint: SUICDAL IDEATION [facility] HPI Patient is a 38 year old [f__sex] who presents with [] Review of Systems Review of Systems Constitutional: Denies fever or chills [] Eyes: Denies change in visual acuity, redness, or eye pain [] HENT: Denies nasal congestion or sore throat [] Respiratory: Denies cough or shortness of breath [] Cardiovascular: No additional information not addressed in HPI [] GI: Denies abdominal pain, nausea, vomiting, bloody stools or diarrhea [] : Denies dysuria or hematuria [] Musculoskeletal: Denies back pain or joint pain [] Integument: Denies rash or skin lesions [] Neurologic: Denies headache, focal weakness or sensory changes [] Endocrine: Denies polyuria or polydipsia [] All other systems were reviewed and found to be within normal limits, except as documented in this note. Current Medications Current Medications Current Medications Medications (Trade) Dose Ordered Sig/Marisol Start Time Stop Time Status Last Admin Dose Admin Sodium Chloride 1,000 ml @ 1,000 mls/hr 1X ONCE 11/06/18 22:45 11/06/18 23:44 DC 11/06/18 22:40 1,000 MLS/HR Allergies Allergies Allergies Coded Allergies Type Severity Reaction Last Updated Verified ciprofloxacin Allergy Intermediate Unknown 05/27/17 Yes sulfamethoxazole Allergy Intermediate Unknown 05/27/17 Yes trimethoprim Allergy Intermediate Unknown 05/27/17 Yes Physical Exam Physical Exam Constitutional: Well developed, well nourished, no acute distress, non-toxic appearance. [] HENT: Normocephalic, atraumatic, bilateral external ears normal, oropharynx moist, no oral exudates, nose normal. [] Eyes: PERRLA, EOMI, conjunctiva normal, no discharge. [] Neck: Normal range of motion, no tenderness, supple, no stridor. [] Cardiovascular:Heart rate regular rhythm, no murmur [] Lungs & Thorax: Bilateral breath sounds clear to auscultation [] Abdomen: Bowel sounds normal, soft, no tenderness, no masses, no pulsatile masses. [] Skin: Warm, dry, no erythema, no rash. [] Back: No tenderness, no CVA tenderness. [] Extremities: No tenderness, no cyanosis, no clubbing, ROM intact, no edema. [] Neurologic: Alert and oriented X 3, normal motor function, normal sensory function, no focal deficits noted. [] Psychologic: Affect normal, judgement normal, mood normal. [] Current Patient Data Vital Signs Vital Signs Date Time Temp Pulse Resp B/P (MAP) Pulse Ox O2 Delivery O2 Flow Rate FiO2 11/06/18 23:08 80 15 103/63 (76) 96 Nasal Cannula 2.0 11/06/18 21:35 97.9 97.9 Lab Values Laboratory Tests Test 11/06/18 21:45 White Blood Count 8.1 x10^3/uL (4.0-11.0) Red Blood Count 4.52 x10^6/uL (3.50-5.40) Hemoglobin 12.9 g/dL (12.0-15.5) Hematocrit 38.6 % (36.0-47.0) Mean Corpuscular Volume 86 fL (79-100) Mean Corpuscular Hemoglobin 29 pg (25-35) Mean Corpuscular Hemoglobin Concent 33 g/dL (31-37) Red Cell Distribution Width 14.5 % (11.5-14.5) Platelet Count 262 x10^3/uL (140-400) Neutrophils (%) (Auto) 63 % (31-73) Lymphocytes (%) (Auto) 29 % (24-48) Monocytes (%) (Auto) 5 % (0-9) Eosinophils (%) (Auto) 1 % (0-3) Basophils (%) (Auto) 1 % (0-3) Neutrophils # (Auto) 5.1 x10^3/uL (1.8-7.7) Lymphocytes # (Auto) 2.4 x10^3/uL (1.0-4.8) Monocytes # (Auto) 0.4 x10^3/uL (0.0-1.1) Eosinophils # (Auto) 0.1 x10^3/uL (0.0-0.7) Basophils # (Auto) 0.1 x10^3/uL (0.0-0.2) Prothrombin Time 12.8 SEC (11.7-14.0) Prothrombin Time INR 1.0 (0.8-1.1) Activated Partial Thromboplast Time 26 SEC (24-38) Sodium Level 140 mmol/L (136-145) Potassium Level 3.5 mmol/L (3.5-5.1) Chloride Level 103 mmol/L (98-107) Carbon Dioxide Level 27 mmol/L (21-32) Anion Gap 10 (6-14) Blood Urea Nitrogen 16 mg/dL (7-20) Creatinine 0.7 mg/dL (0.6-1.0) Estimated GFR (Cockcroft-Gault) 94.2 BUN/Creatinine Ratio 23 (6-20) H Glucose Level 104 mg/dL (70-99) H Calcium Level 8.5 mg/dL (8.5-10.1) Magnesium Level 1.9 mg/dL (1.8-2.4) Total Bilirubin 1.1 mg/dL (0.2-1.0) H Aspartate Amino Transferase (AST) 14 U/L (15-37) L Alanine Aminotransferase (ALT) 14 U/L (14-59) Alkaline Phosphatase 102 U/L (46-116) Total Protein 7.6 g/dL (6.4-8.2) Albumin 3.6 g/dL (3.4-5.0) Albumin/Globulin Ratio 0.9 (1.0-1.7) L Thyroid Stimulating Hormone (TSH) 1.341 uIU/mL (0.358-3.74) Free Thyroxine 1.02 ng/dL (0.76-1.46) Free Triiodothyronine (T3) pg/mL 2.91 pg/mL (2.18-3.98) Salicylates Level < 2.8 mg/dL (2.8-20.0) L Salicylate Last Dose Date Unk Salicylate Last Dose Time Unk Acetaminophen Level < 2 mcg/ml (10-30) L Acetaminophen Last Dose Date Unk Acetaminophen Last Dose Time Unk Ethyl Alcohol Level < 10 mg/dL (0-10) Laboratory Tests 11/06/18 21:45 Laboratory Tests 11/06/18 21:45 EKG EKG @2220 NSR at 79bpm, NO ST elevation, QRS 94ms, QT/QTc 380/437ms Radiology/Procedures Radiology/Procedures [] Course & Med Decision Making Course & Med Decision Making Pertinent Labs and Imaging studies reviewed. (See chart for details) [] Dragon Disclaimer Dragon Disclaimer This electronic medical record was generated, in whole or in part, using a voice recognition dictation system. Departure Departure Impression: Primary Impression: Suicide attempt Additional Impression: Benzodiazepine overdose Disposition: ADMITTED INPATIENT Admitting Physician: CAILIN (Shaheen) Condition: GUARDED Referrals: CHEY PHAM MD (PCP) Critical Care Time Critical care time was 30 minutes which includes time at bedside, spent in discu ssion of patient's care with specialists and/or family members, with interpretation of laboratory and/or radiological studies and is exclusive of procedures. Problem Qualifiers Additional Impression: Benzodiazepine overdose Encounter type: initial encounter Injury intent: intentional self-harm Qualified Codes: T42.4X2A - Poisoning by benzodiazepines, intentional self- harm, initial encounter DAKOTA REDDING DO Nov 06, 2018 22:56
[2018-11-06 23:27] LABS: FREE T4 1.02 ng/dL (0.76-1.46); THYROID STIM HORMONE (TSH) 1.341 uIU/mL (0.358-3.74)
[2018-11-06] MEDS ORDERED: ONDANSETRON PF 4 MG/2 ML VIAL. IV PRN (23:30)
[2018-11-06 23:39] LABS: BILIRUBIN,URINE NEGATIVE (NEG); CLARITY,URINE CLOUDY; COLOR,URINE YELLOW; NITRITE,URINE NEGATIVE (NEG); PH,URINE 7.5; PROTEIN,URINE NEGATIVE (NEG-TRACE)
[2018-11-06 23:45] LABS: AMPHETAMINE/METHAMPHETAMINE NEG (NEG); BACTERIA,URINE FEW /HPF (0-FEW); BARBITURATES NEG (NEG); BENZODIAZEPINES NEG (NEG); CANNABINOIDS NEG (NEG); COCAINE NEG (NEG); METHADONE NEG (NEG); OPIATES NEG (NEG); PHENCYCLIDINE NEG (NEG); RBC,URINE 0 /HPF (0-2); SQUAMOUS EPITHELIAL CELL,UR MOD /LPF; WBC,URINE OCC /HPF (0-4)
[2018-11-06 23:46] LABS: AMORPHOUS SEDIMENT,UR PRESENT /HPF
[2018-11-07] VITALS (19 sets, daily range): BP systolic 81–101; BP diastolic 46–65
[2018-11-07] MEDS ORDERED: ALPR0.254 PO (04:41)
[2018-11-07] MEDS ORDERED: PHEN37.5 PO (04:41)
[2018-11-07] MEDS ORDERED: VILA40TA PO (04:43)
--- NOTE | 2018-11-07 07:08 | EKG ---
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
[2018-11-07] MEDS ORDERED: diphenhydrAMINE 50 MG/ML VIAL ONE (08:42)
[2018-11-07] MEDS ORDERED: diphenhydrAMINE 50 MG/ML VIAL IVP ONE (08:45)
--- NOTE | 2018-11-07 08:56 | EKG ---
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
--- NOTE | 2018-11-07 09:05 | NUR ---
Rapid Response called "Pt woke up and felt like her throat was swelling". Pt on 2L NC with her sats at 98%. No apparent swelling to tongue, able to move to all sides and throat does not fells swollen to touch. Breathing treatment given per RT. . BP 100/63 with RR of 14-18 with saturation staying above 96%. Dr Bauer paged at 0845. Dr Schroeder on unit at 0900 and updated on patient. Addendum: 11/07/18 at 0909 by INDIGO CRAIN RN Amended: Links added.
[2018-11-07] MEDS ORDERED: POTASSIUM CHLORIDE 20 MEQ TABLET.ER. PO ONE (09:15)
--- NOTE | 2018-11-07 09:17 | PDOC1 ---
History and Physical Date of Admission Date of Admission DATE: 11/07/18 TIME: 09:07 Source Source: Chart review, Patient History of Present Illness History of Present Illness Idalmis, ingested > 40 pills last night in a suicide attempt, then called her son to get her to take her to the hospital. He heard the phone hit the floor, and when he arrived, she was unconscious on the porch. 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 prior suicide attempt 2 month ago and was hospitalized at [facility] she complained of lip swelling and acute dyspnea this AM, IV benadryl 25 given, and now she is asleep Past Medical History Cardiovascular: No pertinent hx Pulmonary: No pertinent hx Psych: Anxiety, Depression Musculoskeletal: low back pain Renal/: Other Past Surgical History Past Surgical History: Hysterectomy Family History Family History: Family History Unknown Social History Smoke: No ALCOHOL: rare Drugs: None Current Problem List Problem List Problems Medical Problems: (1) Benzodiazepine overdose Status: Acute Current Medications Current Medications Current Medications Sodium Chloride 1,000 ml @ 1,000 mls/hr 1X ONCE IV Last administered on 11/06/18at 22:40; Start 11/06/18 at 22:45; Stop 11/06/18 at 23:44; Status DC Ondansetron HCl (Zofran) 4 mg PRN Q8HRS PRN IV NAUSEA/VOMITING; Start 11/06/18 at 23:30; Stop 11/07/18 at 23:29 Sodium Chloride 1,000 ml @ 100 mls/hr 1X ONCE IV Last administered on 11/06/18at 23:48; Start 11/06/18 at 23:30; Stop 11/07/18 at 09:29 Diphenhydramine HCl (Benadryl) 25 mg 1X ONCE IVP Last administered on 11/07/18at 08:48; Start 11/07/18 at 08:45; Stop 11/07/18 at 08:46; Status DC Diphenhydramine HCl (Benadryl) 50 mg STK-MED ONCE .ROUTE ; Start 11/07/18 at 08:42; Stop 11/07/18 at 08:43; Status DC Active Scripts Active Ibuprofen 800 Mg Tablet 800 Mg PO PRN Q6HRS PRN Colace (Docusate Sodium) 100 Mg Capsule 100 Mg PO BID Reported Viibryd (Vilazodone Hydrochloride) Unknown Strength Tablet Unknown Dose PO DAILY Phentermine Hcl 37.5 Mg Tablet 37.5 Mg PO BID Alprazolam 0.25 Mg Tablet 0.25 Mg PO TID PRN Escitalopram Oxalate 10 Mg Tablet 1 Tab PO DAILY Levothyroxine Sodium 75 Mcg Tablet 1 Tab PO DAILY Trazodone Hcl 50 Mg Tablet 1 Tab PO QHS Allergies Allergies: Coded Allergies: ciprofloxacin (Verified Allergy, Intermediate, Unknown, 05/27/17) sulfamethoxazole (Verified Allergy, Intermediate, Unknown, 05/27/17) trimethoprim (Verified Allergy, Intermediate, Unknown, 05/27/17) Physical Exam General: Cooperative, mild distress, Other (lethargic, sleepy) HEENT: Atraumatic Rectal Exam: not examined Extremities: No clubbing, No cyanosis, No edema, Normal pulses Skin: No rashes, No breakdown, No significant lesion Neuro: Normal speech, Normal tone, Sensation intact Psych/Mental Status: Mood NL Vitals Vitals Vital Signs Date Time Temp Pulse Resp B/P (MAP) Pulse Ox O2 Delivery O2 Flow Rate FiO2 11/07/18 08:37 99 Nasal Cannula 2.0 11/07/18 08:08 94/57 (69) 11/07/18 07:00 97.7 69 14 97.7 Labs Labs Laboratory Tests Test 11/06/18 21:45 11/06/18 23:30 White Blood Count 8.1 x10^3/uL (4.0-11.0) Red Blood Count 4.52 x10^6/uL (3.50-5.40) Hemoglobin 12.9 g/dL (12.0-15.5) Hematocrit 38.6 % (36.0-47.0) Mean Corpuscular Volume 86 fL (79-100) Mean Corpuscular Hemoglobin 29 pg (25-35) Mean Corpuscular Hemoglobin Concent 33 g/dL (31-37) Red Cell Distribution Width 14.5 % (11.5-14.5) Platelet Count 262 x10^3/uL (140-400) Neutrophils (%) (Auto) 63 % (31-73) Lymphocytes (%) (Auto) 29 % (24-48) Monocytes (%) (Auto) 5 % (0-9) Eosinophils (%) (Auto) 1 % (0-3) Basophils (%) (Auto) 1 % (0-3) Neutrophils # (Auto) 5.1 x10^3/uL (1.8-7.7) Lymphocytes # (Auto) 2.4 x10^3/uL (1.0-4.8) Monocytes # (Auto) 0.4 x10^3/uL (0.0-1.1) Eosinophils # (Auto) 0.1 x10^3/uL (0.0-0.7) Basophils # (Auto) 0.1 x10^3/uL (0.0-0.2) Prothrombin Time 12.8 SEC (11.7-14.0) Prothromb Time International Ratio 1.0 (0.8-1.1) Activated Partial Thromboplast Time 26 SEC (24-38) Sodium Level 140 mmol/L (136-145) Potassium Level 3.5 mmol/L (3.5-5.1) Chloride Level 103 mmol/L (98-107) Carbon Dioxide Level 27 mmol/L (21-32) Anion Gap 10 (6-14) Blood Urea Nitrogen 16 mg/dL (7-20) Creatinine 0.7 mg/dL (0.6-1.0) Estimated GFR (Cockcroft-Gault) 94.2 BUN/Creatinine Ratio 23 (6-20) Glucose Level 104 mg/dL (70-99) Calcium Level 8.5 mg/dL (8.5-10.1) Magnesium Level 1.9 mg/dL (1.8-2.4) Total Bilirubin 1.1 mg/dL (0.2-1.0) Aspartate Amino Transf (AST/SGOT) 14 U/L (15-37) Alanine Aminotransferase (ALT/SGPT) 14 U/L (14-59) Alkaline Phosphatase 102 U/L (46-116) Total Protein 7.6 g/dL (6.4-8.2) Albumin 3.6 g/dL (3.4-5.0) Albumin/Globulin Ratio 0.9 (1.0-1.7) Thyroid Stimulating Hormone (TSH) 1.341 uIU/mL (0.358-3.74) Free Thyroxine 1.02 ng/dL (0.76-1.46) Free Triiodothyronine (T3) pg/mL 2.91 pg/mL (2.18-3.98) Salicylates Level < 2.8 mg/dL (2.8-20.0) Salicylate Last Dose Date Unk Salicylate Last Dose Time Unk Acetaminophen Level < 2 mcg/ml (10-30) Acetaminophen Last Dose Date Unk Acetaminophen Last Dose Time Unk Ethyl Alcohol Level < 10 mg/dL (0-10) Urine Collection Type Unknown Urine Color Yellow Urine Clarity Cloudy Urine pH 7.5 Urine Specific Lynn 1.020 Urine Protein Negative mg/dL (NEG-TRACE) Urine Glucose (UA) Negative mg/dL (NEG) Urine Ketones (Stick) Negative mg/dL (NEG) Urine Blood Negative (NEG) Urine Nitrite Negative (NEG) Urine Bilirubin Negative (NEG) Urine Urobilinogen Dipstick 1.0 mg/dL (0.2 mg/dL) Urine Leukocyte Esterase Negative (NEG) Urine RBC 0 /HPF (0-2) Urine WBC Occ /HPF (0-4) Urine Squamous Epithelial Cells Mod /LPF Urine Amorphous Sediment Present /HPF Urine Bacteria Few /HPF (0-FEW) Urine Mucus Mod /LPF Urine Opiates Screen Neg (NEG) Urine Methadone Screen Neg (NEG) Urine Barbiturates Neg (NEG) Urine Phencyclidine Screen Neg (NEG) Urine Amphetamine/Methamphetamine Neg (NEG) Urine Benzodiazepines Screen Neg (NEG) Urine Cocaine Screen Neg (NEG) Urine Cannabinoids Screen Neg (NEG) Urine Ethyl Alcohol Neg (NEG) Laboratory Tests Test 11/06/18 21:45 11/06/18 23:30 White Blood Count 8.1 x10^3/uL (4.0-11.0) Red Blood Count 4.52 x10^6/uL (3.50-5.40) Hemoglobin 12.9 g/dL (12.0-15.5) Hematocrit 38.6 % (36.0-47.0) Mean Corpuscular Volume 86 fL (79-100) Mean Corpuscular Hemoglobin 29 pg (25-35) Mean Corpuscular Hemoglobin Concent 33 g/dL (31-37) Red Cell Distribution Width 14.5 % (11.5-14.5) Platelet Count 262 x10^3/uL (140-400) Neutrophils (%) (Auto) 63 % (31-73) Lymphocytes (%) (Auto) 29 % (24-48) Monocytes (%) (Auto) 5 % (0-9) Eosinophils (%) (Auto) 1 % (0-3) Basophils (%) (Auto) 1 % (0-3) Neutrophils # (Auto) 5.1 x10^3/uL (1.8-7.7) Lymphocytes # (Auto) 2.4 x10^3/uL (1.0-4.8) Monocytes # (Auto) 0.4 x10^3/uL (0.0-1.1) Eosinophils # (Auto) 0.1 x10^3/uL (0.0-0.7) Basophils # (Auto) 0.1 x10^3/uL (0.0-0.2) Prothrombin Time 12.8 SEC (11.7-14.0) Prothromb Time International Ratio 1.0 (0.8-1.1) Activated Partial Thromboplast Time 26 SEC (24-38) Sodium Level 140 mmol/L (136-145) Potassium Level 3.5 mmol/L (3.5-5.1) Chloride Level 103 mmol/L (98-107) Carbon Dioxide Level 27 mmol/L (21-32) Anion Gap 10 (6-14) Blood Urea Nitrogen 16 mg/dL (7-20) Creatinine 0.7 mg/dL (0.6-1.0) Estimated GFR (Cockcroft-Gault) 94.2 BUN/Creatinine Ratio 23 (6-20) Glucose Level 104 mg/dL (70-99) Calcium Level 8.5 mg/dL (8.5-10.1) Magnesium Level 1.9 mg/dL (1.8-2.4) Total Bilirubin 1.1 mg/dL (0.2-1.0) Aspartate Amino Transf (AST/SGOT) 14 U/L (15-37) Alanine Aminotransferase (ALT/SGPT) 14 U/L (14-59) Alkaline Phosphatase 102 U/L (46-116) Total Protein 7.6 g/dL (6.4-8.2) Albumin 3.6 g/dL (3.4-5.0) Albumin/Globulin Ratio 0.9 (1.0-1.7) Thyroid Stimulating Hormone (TSH) 1.341 uIU/mL (0.358-3.74) Free Thyroxine 1.02 ng/dL (0.76-1.46) Free Triiodothyronine (T3) pg/mL 2.91 pg/mL (2.18-3.98) Salicylates Level < 2.8 mg/dL (2.8-20.0) Salicylate Last Dose Date Unk Salicylate Last Dose Time Unk Acetaminophen Level < 2 mcg/ml (10-30) Acetaminophen Last Dose Date Unk Acetaminophen Last Dose Time Unk Ethyl Alcohol Level < 10 mg/dL (0-10) Urine Collection Type Unknown Urine Color Yellow Urine Clarity Cloudy Urine pH 7.5 Urine Specific Lynn 1.020 Urine Protein Negative mg/dL (NEG-TRACE) Urine Glucose (UA) Negative mg/dL (NEG) Urine Ketones (Stick) Negative mg/dL (NEG) Urine Blood Negative (NEG) Urine Nitrite Negative (NEG) Urine Bilirubin Negative (NEG) Urine Urobilinogen Dipstick 1.0 mg/dL (0.2 mg/dL) Urine Leukocyte Esterase Negative (NEG) Urine RBC 0 /HPF (0-2) Urine WBC Occ /HPF (0-4) Urine Squamous Epithelial Cells Mod /LPF Urine Amorphous Sediment Present /HPF Urine Bacteria Few /HPF (0-FEW) Urine Mucus Mod /LPF Urine Opiates Screen Neg (NEG) Urine Methadone Screen Neg (NEG) Urine Barbiturates Neg (NEG) Urine Phencyclidine Screen Neg (NEG) Urine Amphetamine/Methamphetamine Neg (NEG) Urine Benzodiazepines Screen Neg (NEG) Urine Cocaine Screen Neg (NEG) Urine Cannabinoids Screen Neg (NEG) Urine Ethyl Alcohol Neg (NEG) VTE Prophylaxis Ordered VTE Prophylaxis Devices: Yes VTE Pharmacological Prophylaxi: No Assessment/Plan Assessment/Plan suicide attempt major depressive disorder ingestion of possibly 37 xanax, 6 trazodone, possible synthroid and hydrocodone JOSELIN SWANSON MD Nov 07, 2018 09:17
[2018-11-07] MEDS ORDERED: diphenhydrAMINE 50 MG/ML VIAL IVP PRN (09:30)
--- NOTE | 2018-11-07 09:45 | NUR ---
Spoke to pts mom and son to try and find out dose of medications that pt had taken. Son brought in pts purse which had a coupon for Viibryd in it. The pt says that the dose was 10mg daily for 10days then increased to 20mg daily for 10days. She has not taken this medication for 4-5 days due to cost. Bottle of Alprazolam was in her purse. Dose .25mg tab. There were #90 with 51 tablets left. Pt states she took 37 tabs. All the rest of the medications she states she took are at home in her room. Son will call when he gets home and give details of other medications.
[2018-11-07 11:25] LABS: BARBITURATES NEG (NEG); BENZODIAZEPINES POS (NEG); CANNABINOIDS NEG (NEG); COCAINE NEG (NEG); METHADONE NEG (NEG); OPIATES NEG (NEG); PHENCYCLIDINE NEG (NEG)
[2018-11-07 11:27] LABS: AMPHETAMINE/METHAMPHETAMINE NEG (NEG)
--- NOTE | 2018-11-07 16:10 | NUR ---
SW following pt for dc planning. Chart reviewed and discussed with RN. Pt lives at home with family. VIANNEY phoned PAT team for assessment and eval for SI. Alma Rosa will come in to see pt.
[2018-11-07] MEDS ORDERED: IV NORMAL SALINE 1000ML BAG 1,000 ML IV ONE (20:30)
[2018-11-07] MEDS ORDERED: ERGOCALCIFEROL (VITAMIN D2) 50,000 UNIT CAPSULE. PO SCH (21:00)
[2018-11-07] MEDS ORDERED: ENOXAPARIN 40 MG/0.4 ML SYRINGE. SQ SCH (21:00)
[2018-11-07] MEDS: ESTRADIOL 1 MG TABLET. PO SCH (21:26)
[2018-11-08 03:00] VITALS: BP 99/63
[2018-11-08 06:47] LABS: BASO % 1 % (0-3); EOS # 0.1 x10^3/uL (0.0-0.7); EOS % 1 % (0-3); HEMATOCRIT 34.7 % (36.0-47.0); HEMOGLOBIN 11.6 g/dL (12.0-15.5); LYMPH # 2.2 x10^3/uL (1.0-4.8); LYMPH % 31 % (24-48); MEAN CORPUSCULAR HEMOGLOBIN 29 pg (25-35); MEAN CORPUSCULAR HGB CONC 33 g/dL (31-37); MEAN CORPUSCULAR VOLUME 87 fL (79-100); MONO # 0.3 x10^3/uL (0.0-1.1); MONO % 5 % (0-9); NEUT # 4.5 x10^3/uL (1.8-7.7); NEUT % 62 % (31-73); PLATELET COUNT 211 x10^3/uL (140-400); RED BLOOD COUNT 4.01 x10^6/uL (3.50-5.40); RED CELL DISTRIBUTION WIDTH 14.4 % (11.5-14.5); WHITE BLOOD COUNT 7.2 x10^3/uL (4.0-11.0)
[2018-11-08 07:12] VITALS: BP 98/71
[2018-11-08 07:32] LABS: ALBUMIN 2.9 g/dL (3.4-5.0); ALBUMIN/GLOBULIN RATIO 0.8 (1.0-1.7); CALCIUM 7.8 mg/dL (8.5-10.1); CREATININE 0.6 mg/dL (0.6-1.0); GFR 112.5; POTASSIUM 3.8 mmol/L (3.5-5.1); TOTAL BILIRUBIN 0.8 mg/dL (0.2-1.0); TOTAL PROTEIN 6.4 g/dL (6.4-8.2)
[2018-11-08] MEDS ORDERED: VITAMIN B12,B9,B6 COMPLEX 1 TABLET. PO SCH (09:00)
[2018-11-08] MEDS ORDERED: FOLIC/VIT B COMP W-C (RENAL) TABLET. PO SCH (09:00)
[2018-11-08] MEDS ORDERED: CYAN1TAB19 PO (10:56)
[2018-11-08] MEDS ORDERED: ERGO500027 PO (10:56)
[2018-11-08] MEDS ORDERED: ESTR1TAB15 PO (10:56)
--- NOTE | 2018-11-08 10:57 | SNU/HH DC ---
DISCHARGE ORDERS DISCHARGE INFORMATION: DISCHARGE DATE: Nov 08, 2018 FINAL DIAGNOSIS Problems Medical Problems: (1) Benzodiazepine overdose Status: Acute CONDITION ON DISCHARGE: Stable CODE STATUS: Code Status: Full HALF-WAY: SNF STAY <30 DAYS: Yes POST DISCHARGE ORDERS: ACTIVITY ORDERS: No restrictions WEIGHT BEARING STATUS: No restrictions DIET AFTER DISCHARGE: Regular FOLLOW-UP: PHYSICIAN FOLLOW-UP: psych TREATMENT/EQUIPMENT ORDERS: ADAPTIVE EQUIPMENT NEEDED: None DISCHARGE MEDICATIONS: Home Meds Active Scripts Estradiol (ESTRADIOL) 1 Mg Tablet, 1 MG PO DAILY for hormone replacement, #30 TAB 2 Refills Prov:JOSELIN SWANSON MD 11/08/18 Ergocalciferol (Vitamin D2) (VITAMIN D2) 50,000 Unit Capsule, [address] [facility], #7 CAP Prov:JOSELIN SWANSON MD 11/08/18 Cyanocobalamin/Fa/Pyridoxine (FOLBIC TABLET) 1 Each Tablet, 1 TAB PO DAILY for vitamin supplement, #30 TAB Prov:JOSELIN SWANSON MD 11/08/18 Ibuprofen (IBUPROFEN) 800 Mg Tablet, 800 MG PO PRN Q6HRS PRN for INFLAMMATION, #30 TAB 1 Refill Prov:CHUCK PULIDO Jr, MD 05/28/17 Docusate Sodium (COLACE) 100 Mg Capsule, 100 MG PO BID, #60 CAP 1 Refill Prov:CHUCK PULIDO Jr, MD 05/28/17 Reported Medications Levothyroxine Sodium (LEVOTHYROXINE SODIUM) 75 Mcg Tablet, 1 TAB PO DAILY, #30 TAB 5 Refills 05/27/17 Trazodone Hcl (TRAZODONE HCL) 50 Mg Tablet, 1 TAB PO QHS, #30 TAB 1 Refill 06/06/16 Discontinued Reported Medications Vilazodone Hydrochloride (VIIBRYD) Unknown Strength Tablet, PO DAILY for depre ssion, #30 TAB 1 Refill 11/07/18 Phentermine Hcl (PHENTERMINE HCL) 37.5 Mg Tablet, 37.5 MG PO BID for weight loss 11/07/18 Alprazolam (ALPRAZOLAM) 0.25 Mg Tablet, 0.25 MG PO TID PRN for ANXIETY / AGITATION 11/07/18 Escitalopram Oxalate (ESCITALOPRAM OXALATE) 10 Mg Tablet, 1 TAB PO DAILY, #30 TAB 3 Refills 05/27/17 JOSELIN SWANSON MD Nov 08, 2018 10:57
[2018-11-08 11:00] VITALS: BP 103/67
[2018-11-08] MEDS ORDERED: IBUPROFEN 400 MG TABLET. PO PRN (11:15)
--- NOTE | 2018-11-08 11:16 | PDOC3 ---
Discharge Summary Visit Information Date of Admission: Nov 07, 2018 Date of Discharge: Nov 08, 2018 Final Diagnosis suicide attempt benzo overdose major depressive disorder ingestion of possibly 37 xanax, 6 trazodone, possible synthroid and hydrocodone hypothyroid vit d deficiency Problems Medical Problems: (1) Benzodiazepine overdose Status: Acute Brief Hospital Course Allergies Allergies Coded Allergies Type Severity Reaction Last Updated Verified ciprofloxacin Allergy Intermediate Unknown 05/27/17 Yes sulfamethoxazole Allergy Intermediate Unknown 05/27/17 Yes trimethoprim Allergy Intermediate Unknown 05/27/17 Yes Vital Signs Vital Signs Date Time Temp Pulse Resp B/P (MAP) Pulse Ox O2 Delivery O2 Flow Rate FiO2 11/08/18 08:00 Room Air 11/08/18 07:12 98.1 72 14 98/71 (80) 98 98.1 11/07/18 19:00 2.0 Lab Results Laboratory Tests Test 11/06/18 21:45 11/06/18 23:30 11/07/18 10:20 11/08/18 05:25 White Blood Count 8.1 x10^3/uL (4.0-11.0) 7.2 x10^3/uL (4.0-11.0) Red Blood Count 4.52 x10^6/uL (3.50-5.40) 4.01 x10^6/uL (3.50-5.40) Hemoglobin 12.9 g/dL (12.0-15.5) 11.6 g/dL (12.0-15.5) Hematocrit 38.6 % (36.0-47.0) 34.7 % (36.0-47.0) Mean Corpuscular Volume 86 fL (79-100) 87 fL (79-100) Mean Corpuscular Hemoglobin 29 pg (25-35) 29 pg (25-35) Mean Corpuscular Hemoglobin Concent 33 g/dL (31-37) 33 g/dL (31-37) Red Cell Distribution Width 14.5 % (11.5-14.5) 14.4 % (11.5-14.5) Platelet Count 262 x10^3/uL (140-400) 211 x10^3/uL (140-400) Neutrophils (%) (Auto) 63 % (31-73) 62 % (31-73) Lymphocytes (%) (Auto) 29 % (24-48) 31 % (24-48) Monocytes (%) (Auto) 5 % (0-9) 5 % (0-9) Eosinophils (%) (Auto) 1 % (0-3) 1 % (0-3) Basophils (%) (Auto) 1 % (0-3) 1 % (0-3) Neutrophils # (Auto) 5.1 x10^3/uL (1.8-7.7) 4.5 x10^3/uL (1.8-7.7) Lymphocytes # (Auto) 2.4 x10^3/uL (1.0-4.8) 2.2 x10^3/uL (1.0-4.8) Monocytes # (Auto) 0.4 x10^3/uL (0.0-1.1) 0.3 x10^3/uL (0.0-1.1) Eosinophils # (Auto) 0.1 x10^3/uL (0.0-0.7) 0.1 x10^3/uL (0.0-0.7) Basophils # (Auto) 0.1 x10^3/uL (0.0-0.2) 0.0 x10^3/uL (0.0-0.2) Prothrombin Time 12.8 SEC (11.7-14.0) Prothromb Time International Ratio 1.0 (0.8-1.1) Activated Partial Thromboplast Time 26 SEC (24-38) Sodium Level 140 mmol/L (136-145) 140 mmol/L (136-145) Potassium Level 3.5 mmol/L (3.5-5.1) 3.8 mmol/L (3.5-5.1) Chloride Level 103 mmol/L (98-107) 107 mmol/L (98-107) Carbon Dioxide Level 27 mmol/L (21-32) 25 mmol/L (21-32) Anion Gap 10 (6-14) 8 (6-14) Blood Urea Nitrogen 16 mg/dL (7-20) 6 mg/dL (7-20) Creatinine 0.7 mg/dL (0.6-1.0) 0.6 mg/dL (0.6-1.0) Estimated GFR (Cockcroft-Gault) 94.2 112.5 BUN/Creatinine Ratio 23 (6-20) 10 (6-20) Glucose Level 104 mg/dL (70-99) 99 mg/dL (70-99) Calcium Level 8.5 mg/dL (8.5-10.1) 7.8 mg/dL (8.5-10.1) Magnesium Level 1.9 mg/dL (1.8-2.4) Total Bilirubin 1.1 mg/dL (0.2-1.0) 0.8 mg/dL (0.2-1.0) Aspartate Amino Transf (AST/SGOT) 14 U/L (15-37) 9 U/L (15-37) Alanine Aminotransferase (ALT/SGPT) 14 U/L (14-59) 10 U/L (14-59) Alkaline Phosphatase 102 U/L (46-116) 82 U/L (46-116) Total Protein 7.6 g/dL (6.4-8.2) 6.4 g/dL (6.4-8.2) Albumin 3.6 g/dL (3.4-5.0) 2.9 g/dL (3.4-5.0) Albumin/Globulin Ratio 0.9 (1.0-1.7) 0.8 (1.0-1.7) Thyroid Stimulating Hormone (TSH) 1.341 uIU/mL (0.358-3.74) Free Thyroxine 1.02 ng/dL (0.76-1.46) 0.83 ng/dL (0.76-1.46) Free Triiodothyronine (T3) pg/mL 2.91 pg/mL (2.18-3.98) Salicylates Level < 2.8 mg/dL (2.8-20.0) Salicylate Last Dose Date Unk Salicylate Last Dose Time Unk Acetaminophen Level < 2 mcg/ml (10-30) Acetaminophen Last Dose Date Unk Acetaminophen Last Dose Time Unk Ethyl Alcohol Level < 10 mg/dL (0-10) Urine Collection Type Unknown Urine Color Yellow Urine Clarity Cloudy Urine pH 7.5 Urine Specific [place] 1.020 Urine Protein Negative mg/dL (NEG-TRACE) Urine Glucose (UA) Negative mg/dL (NEG) Urine Ketones (Stick) Negative mg/dL (NEG) Urine Blood Negative (NEG) Urine Nitrite Negative (NEG) Urine Bilirubin Negative (NEG) Urine Urobilinogen Dipstick 1.0 mg/dL (0.2 mg/dL) Urine Leukocyte Esterase Negative (NEG) Urine RBC 0 /HPF (0-2) Urine WBC Occ /HPF (0-4) Urine Squamous Epithelial Cells Mod /LPF Urine Amorphous Sediment Present /HPF Urine Bacteria Few /HPF (0-FEW) Urine Mucus Mod /LPF Urine Opiates Screen Neg (NEG) Neg (NEG) Urine Methadone Screen Neg (NEG) Neg (NEG) Urine Barbiturates Neg (NEG) Neg (NEG) Urine Phencyclidine Screen Neg (NEG) Neg (NEG) Urine Amphetamine/Methamphetamine Neg (NEG) Neg (NEG) Urine Benzodiazepines Screen Neg (NEG) Pos (NEG) Urine Cocaine Screen Neg (NEG) Neg (NEG) Urine Cannabinoids Screen Neg (NEG) Neg (NEG) Urine Ethyl Alcohol Neg (NEG) Neg (NEG) Laboratory Tests Test 11/08/18 05:25 White Blood Count 7.2 x10^3/uL (4.0-11.0) Red Blood Count 4.01 x10^6/uL (3.50-5.40) Hemoglobin 11.6 g/dL (12.0-15.5) Hematocrit 34.7 % (36.0-47.0) Mean Corpuscular Volume 87 fL (79-100) Mean Corpuscular Hemoglobin 29 pg (25-35) Mean Corpuscular Hemoglobin Concent 33 g/dL (31-37) Red Cell Distribution Width 14.4 % (11.5-14.5) Platelet Count 211 x10^3/uL (140-400) Neutrophils (%) (Auto) 62 % (31-73) Lymphocytes (%) (Auto) 31 % (24-48) Monocytes (%) (Auto) 5 % (0-9) Eosinophils (%) (Auto) 1 % (0-3) Basophils (%) (Auto) 1 % (0-3) Neutrophils # (Auto) 4.5 x10^3/uL (1.8-7.7) Lymphocytes # (Auto) 2.2 x10^3/uL (1.0-4.8) Monocytes # (Auto) 0.3 x10^3/uL (0.0-1.1) Eosinophils # (Auto) 0.1 x10^3/uL (0.0-0.7) Basophils # (Auto) 0.0 x10^3/uL (0.0-0.2) Sodium Level 140 mmol/L (136-145) Potassium Level 3.8 mmol/L (3.5-5.1) Chloride Level 107 mmol/L (98-107) Carbon Dioxide Level 25 mmol/L (21-32) Anion Gap 8 (6-14) Blood Urea Nitrogen 6 mg/dL (7-20) Creatinine 0.6 mg/dL (0.6-1.0) Estimated GFR (Cockcroft-Gault) 112.5 BUN/Creatinine Ratio 10 (6-20) Glucose Level 99 mg/dL (70-99) Calcium Level 7.8 mg/dL (8.5-10.1) Total Bilirubin 0.8 mg/dL (0.2-1.0) Aspartate Amino Transf (AST/SGOT) 9 U/L (15-37) Alanine Aminotransferase (ALT/SGPT) 10 U/L (14-59) Alkaline Phosphatase 82 U/L (46-116) Total Protein 6.4 g/dL (6.4-8.2) Albumin 2.9 g/dL (3.4-5.0) Albumin/Globulin Ratio 0.8 (1.0-1.7) Free Thyroxine 0.83 ng/dL (0.76-1.46) Brief Hospital Course Ms. Sanderson is a 38 old female, admit after SI attempt, ingestion she had taken 20 days of samples of new SSRI and Ran out of meds 5 days before this event thyroid and female hormone problems recently, cont synthroid, change to Estrace PO daily was lethargic, TSH ok, F T4 OK x2 days, she had poss taken extra thyroid alert, coherent, Discharge Information Condition at Discharge: Improved Follow Up: Weeks Disposition/Orders: D/C to Another Facility ([facility]) Scheduled Cyanocobalamin/Fa/Pyridoxine (Folbic Tablet) 1 Each Tablet, 1 TAB PO DAILY for vitamin supplement, #30 Prescribed by: JOSELIN SWANSON on 11/08/18 1056 Docusate Sodium (Colace) 100 Mg Capsule, 100 MG PO BID, #60 Ref 1 Prescribed by: CHUCK PULIDO on 05/28/17 1256 Last Action: HELD on 11/08/181049 by JOSELIN SWANSON Ergocalciferol (Vitamin D2) (Vitamin D2) 50,000 Unit Capsule, 50,000 UNIT PO WEEKLY for vitamin deficiency, #7 Prescribed by: JOSELIN SWANSON on 11/08/181055 Estradiol (Estradiol) 1 Mg Tablet, 1 MG PO DAILY for hormone replacement, #30 Ref 2 Prescribed by: JOSELIN SWANSON on 11/08/181055 Levothyroxine Sodium (Levothyroxine Sodium) 75 Mcg Tablet, 1 TAB PO DAILY, #30 Ref 5 (Reported) Entered as Reported by: DEYSI ROLLINS on 05/27/17 0745 Last Action: Continued on 11/08/181049 by JOSELIN SWANSON Trazodone Hcl (Trazodone Hcl) 50 Mg Tablet, 1 TAB PO QHS, #30 Ref 1 (Reported) Entered as Reported by: CHANDLER HARRISON on 06/06/16 0917 Last Action: Continued on 11/08/181049 by JOSELIN SWANSON Scheduled PRN Ibuprofen (Ibuprofen) 800 Mg Tablet, 800 MG PO PRN Q6HRS PRN for INFLAMMATION, #30 Ref 1 Prescribed by: CHUCK PULIDO on 05/28/17 1256 Last Action: Converted on 11/08/181049 by JOSELIN SWANSON Discontinued Medications Alprazolam (Alprazolam) 0.25 Mg Tablet, 0.25 MG PO TID PRN for ANXIETY / AGITATION, (Reported) Entered as Reported by: Tim Oliveros on 11/07/18440 Last Action: HELD on 11/08/181049 by JOSELIN SWANSON Escitalopram Oxalate (Escitalopram Oxalate) 10 Mg Tablet, 1 TAB PO DAILY, #30 Ref 3 (Reported) Entered as Reported by: DEYSI ROLLINS on 05/27/17 0745 Last Action: HELD on 11/08/181049 by JOSELIN SWANSON Phentermine Hcl (Phentermine Hcl) 37.5 Mg Tablet, 37.5 MG PO BID for weight loss, (Reported) Entered as Reported by: Tim Oliveros on 11/07/18440 Last Action: HELD on 11/08/181049 by JOSELIN SWANSON Vilazodone Hydrochloride (Viibryd) Unknown Strength Tablet, Unknown Dose PO DAILY for depression, #30 Ref 1 (Reported) Entered as Reported by: Tim Oliveros on 11/07/183 Last Action: HELD on 11/08/18 1050 by JOSELIN SWANSON Patient Instructions Patient Instructions > 30 min face to face x2 JOSELIN SWANSON MD Nov 08, 2018 11:16
[2018-11-08] MEDS: ESTRADIOL 1 MG TABLET. PO SCH (11:54)
[2018-11-08] MEDS ORDERED: POLYETHYLENE GLYCOL 3350 17 GM PACKET. PO ONE (12:00)
[2018-11-08] MEDS ORDERED: LEVOTHYROXINE 75 MCG TABLET PO SCH (12:00)
[2018-11-08] MEDS ORDERED: DOCUSATE SODIUM 100 MG CAPSULE. PO SCH (12:00)
--- NOTE | 2018-11-08 13:23 | NUR ---
SW following pt. Pt seen by PAT team and needs inpt psych placement. Pt agreeable with [facility], Referral initiated by PAT team and pt is accepted. SW arranged transportation via [facility] at 1630. RN and [facility] staff notified.
--- NOTE | 2018-11-08 14:48 | NUR ---
Nurse exchange report called to REZA Godfrey at [facility].
[2018-11-08 15:00] VITALS: BP 102/65
[2018-11-08] MEDS ORDERED: traZODone 50 MG TABLET. PO SCH (21:00)
== END 2018-11-08 15:58 | DRG 918 ==
LOC: ER 21:07 → 6 SOUTH 23:10
PROVIDERS: ADMIT Internal Medicine; ATTEND Internal Medicine
DX: T42.4X1A Poisoning by benzodiazepines, accidental (unintentional), initial encounter (principal); E03.9 Hypothyroidism, unspecified; E55.9 Vitamin D deficiency, unspecified; F32.9 Major depressive disorder, single episode, unspecified; F41.9 Anxiety disorder, unspecified; Z90.710 Acquired absence of both cervix and uterus; Z91.5 Personal history of self-harm; Z87.442 Personal history of urinary calculi; Y92.89 Other specified places as the place of occurrence of the external cause; Z98.51 Tubal ligation status; Z88.8 Allergy status to other drugs, medicaments and biological substances
CPT/HCPCS: 36415; 80053; 80307; 80329; 81001; 83735; 84439; 84443; 84481; 85025; 85610; 85730; 93005; G0480; J1200; J1650; J7030; G0378

== ENCOUNTER 2019-03-27 18:39 | Emergency (ER) | payer OTHER ==
[~2019-03-27] VITALS: Ht 160 cm; Wt 73.0 kg
[~2019-03-27 18:39] MED LIST changes: +ALPR0.254 PO; -BUPR300T4 PO; +BUPR300T92 PO; +CYAN1TAB19 PO; +ERGO500027 PO; +ESTR1TAB15 PO; +VILA40TA PO
[2019-03-27] MEDS ORDERED: IV NORMAL SALINE 500ML BAG 500 ML IV ONE (19:30)
[2019-03-27] MEDS ORDERED: ONDANSETRON PF 4 MG/2 ML VIAL. IVP ONE (19:30)
[2019-03-27] MEDS ORDERED: IV NORMAL SALINE 1000ML BAG 1,000 ML IV ONE (19:30)
--- NOTE | 2019-03-27 19:35 | PHYS DOC ---
Past Medical History Past Medical History: Anxiety, Depression, Hypothyroid Past Surgical History: Cholecystectomy, Hysterectomy, Tubal ligation Additional Past Surgical Histo: partial thyroidectomy,D&C,UTERINE ablation,ki dney stone removal Alcohol Use: Occasionally Drug Use: None Adult General Chief Complaint Chief Complaint: NEAR SYNCOPE HPI HPI Patient is a 38 year old female with history of depression, hypothyroidism who presents with ear single episode after taking newly prescribed medications. Patient took newly prescribed Topamax, Vyvanse, omeprazole and Vybrid 's evening upon returning home from work. ED prior to taking medications but developed palpitations and dizziness shortening within 60 minutes of medications. Patient lives on but states family members were able to lowered the floor. Patient if had brief loss of consciousness. No seizure activity. Denies headache, chest pain shortness breath reports mild nausea, no vomiting or diarrhea. Denies fever chills sweats. Symptoms gradually improved since it occurred 30 minutes prior to ED arrival. Patient states she has had similar syncopal episodes with prior medications. No other acute symptoms or complaints. Previous hysterectomy. [] Review of Systems Review of Systems Review of symptoms as per history of present illness. All other review symptoms are negative. All other systems were reviewed and found to be within normal limits, except as documented in this note. Current Medications Current Medications Current Medications Medications (Trade) Dose Ordered Sig/Marisol Start Time Stop Time Status Last Admin Dose Admin Acetaminophen (Tylenol) 650 mg 1X ONCE 03/27/19 19:45 03/27/19 19:46 DC 03/27/19 19:47 650 MG Ondansetron HCl (Zofran) 4 mg 1X ONCE 03/27/19 19:30 03/27/19 19:45 DC 03/27/19 19:47 4 MG Sodium Chloride 1,000 ml @ 1,000 mls/hr 1X ONCE 03/27/19 19:30 03/27/19 20:29 DC 03/27/19 19:37 1,000 MLS/HR Allergies Allergies Allergies Coded Allergies Type Severity Reaction Last Updated Verified ciprofloxacin Allergy Intermediate Unknown 05/27/17 Yes sulfamethoxazole Allergy Intermediate Unknown 05/27/17 Yes trimethoprim Allergy Intermediate Unknown 05/27/17 Yes Physical Exam Physical Exam Constitutional: Well developed, well nourished, no acute distress, non-toxic appearance. [] HENT: Normocephalic, atraumatic, bilateral external ears normal, oropharynx moist, nose normal. [] Eyes: PERRLA, EOMI, conjunctiva normal. [] Neck: Normal range of motion, no tenderness. [] Cardiovascular:Heart rate regular rhythm, no murmur [] Lungs & Thorax: Bilateral breath sounds clear to auscultation [] Abdomen: Bowel sounds normal, soft, no tenderness.[] Skin: Warm, dry, no erythema, no rash. [] Back: No tenderness. [] Extremities: No tenderness, no edema. [] Neurologic: Alert and oriented X 3, normal motor function, normal sensory function, no focal deficits noted. [] Psychologic: Affect normal, judgement normal, mood normal. [] Current Patient Data Vital Signs Vital Signs Date Time Temp Pulse Resp B/P (MAP) Pulse Ox O2 Delivery O2 Flow Rate FiO2 03/27/19 19:22 97.7 75 19 103/67 (79) 97 Room Air 97.7 Lab Values Laboratory Tests Test 03/27/19 19:30 White Blood Count 7.2 x10^3/uL (4.0-11.0) Red Blood Count 4.31 x10^6/uL (3.50-5.40) Hemoglobin 12.7 g/dL (12.0-15.5) Hematocrit 37.5 % (36.0-47.0) Mean Corpuscular Volume 87 fL (79-100) Mean Corpuscular Hemoglobin 29 pg (25-35) Mean Corpuscular Hemoglobin Concent 34 g/dL (31-37) Red Cell Distribution Width 13.8 % (11.5-14.5) Platelet Count 275 x10^3/uL (140-400) Neutrophils (%) (Auto) 66 % (31-73) Lymphocytes (%) (Auto) 27 % (24-48) Monocytes (%) (Auto) 5 % (0-9) Eosinophils (%) (Auto) 1 % (0-3) Basophils (%) (Auto) 1 % (0-3) Neutrophils # (Auto) 4.8 x10^3/uL (1.8-7.7) Lymphocytes # (Auto) 2.0 x10^3/uL (1.0-4.8) Monocytes # (Auto) 0.4 x10^3/uL (0.0-1.1) Eosinophils # (Auto) 0.0 x10^3/uL (0.0-0.7) Basophils # (Auto) 0.1 x10^3/uL (0.0-0.2) Sodium Level 138 mmol/L (136-145) Potassium Level 3.5 mmol/L (3.5-5.1) Chloride Level 102 mmol/L (98-107) Carbon Dioxide Level 28 mmol/L (21-32) Anion Gap 8 (6-14) Blood Urea Nitrogen 19 mg/dL (7-20) Creatinine 0.9 mg/dL (0.6-1.0) Estimated GFR (Cockcroft-Gault) 70.5 BUN/Creatinine Ratio 21 (6-20) H Glucose Level 112 mg/dL (70-99) H Calcium Level 9.1 mg/dL (8.5-10.1) Total Bilirubin 0.7 mg/dL (0.2-1.0) Aspartate Amino Transferase (AST) 15 U/L (15-37) Alanine Aminotransferase (ALT) 16 U/L (14-59) Alkaline Phosphatase 107 U/L (46-116) Total Protein 8.0 g/dL (6.4-8.2) Albumin 3.8 g/dL (3.4-5.0) Albumin/Globulin Ratio 0.9 (1.0-1.7) L Thyroid Stimulating Hormone (TSH) 1.391 uIU/mL (0.358-3.74) Laboratory Tests 03/27/19 19:30 Laboratory Tests 03/27/19 19:30 EKG EKG [ekg: reviewed ] Radiology/Procedures Radiology/Procedures [] Course & Med Decision Making Course & Med Decision Making Pertinent Labs and Imaging studies reviewed. (See chart for details) Secondary to recently secondary to adverse drug reactions. Blood pressure improved prior to ED arrival. IV fluids given. Basic labs obtained. Recommend supportive care with follow-up with PCP to coordinate timing of medication administration. Return precautions reviewed. Dragon Disclaimer Dragon Disclaimer This electronic medical record was generated, in whole or in part, using a voice recognition dictation system. Departure Departure Impression: Primary Impression: Syncope Disposition: 01 HOME, SELF-CARE Condition: STABLE Referrals: CHEY PHAM MD (PCP) Patient Instructions: Syncope, [id number] Additional Instructions: Please go home and rest. Do not resume newly prescribed medication until you follow-up with your PCP for further instructions on when and how to resume medications. BERNARDINO MAYBERRY DO Mar 27, 2019 19:35
[2019-03-27] MEDS ORDERED: ACETAMINOPHEN 325 MG TABLET. PO ONE (19:45)
[2019-03-27 19:48] LABS: BASO # 0.1 x10^3/uL (0.0-0.2); BASO % 1 % (0-3); EOS % 1 % (0-3); HEMATOCRIT 37.5 % (36.0-47.0); HEMOGLOBIN 12.7 g/dL (12.0-15.5); LYMPH % 27 % (24-48); MEAN CORPUSCULAR HEMOGLOBIN 29 pg (25-35); MEAN CORPUSCULAR HGB CONC 34 g/dL (31-37); MEAN CORPUSCULAR VOLUME 87 fL (79-100); MONO # 0.4 x10^3/uL (0.0-1.1); MONO % 5 % (0-9); NEUT # 4.8 x10^3/uL (1.8-7.7); NEUT % 66 % (31-73); PLATELET COUNT 275 x10^3/uL (140-400); RED BLOOD COUNT 4.31 x10^6/uL (3.50-5.40); RED CELL DISTRIBUTION WIDTH 13.8 % (11.5-14.5); WHITE BLOOD COUNT 7.2 x10^3/uL (4.0-11.0)
[2019-03-27 19:56] LABS: CALCIUM 9.1 mg/dL (8.5-10.1); CREATININE 0.9 mg/dL (0.6-1.0); GFR 70.5; POTASSIUM 3.5 mmol/L (3.5-5.1)
[2019-03-27 20:02] LABS: ALBUMIN 3.8 g/dL (3.4-5.0); ALBUMIN/GLOBULIN RATIO 0.9 (1.0-1.7); TOTAL BILIRUBIN 0.7 mg/dL (0.2-1.0)
[2019-03-27 21:10] VITALS: BP 102/64
--- NOTE | 2019-03-28 06:27 | EKG ---
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
== END 2019-03-27 21:20 | disposition home or self-care (01) ==
LOC: ER 18:39
DX: R55 Syncope and collapse (principal); R42 Dizziness and giddiness; F41.9 Anxiety disorder, unspecified; F32.9 Major depressive disorder, single episode, unspecified; E03.9 Hypothyroidism, unspecified; Z90.710 Acquired absence of both cervix and uterus; Z90.49 Acquired absence of other specified parts of digestive tract; Z98.51 Tubal ligation status; Z98.890 Other specified postprocedural states; Z88.2 Allergy status to sulfonamides; Z88.1 Allergy status to other antibiotic agents
CPT/HCPCS: 36415; 80053; 84443; 85025; 93005; 96361; 96374; 99285; J2405; J7030; J7040

== ENCOUNTER 2019-04-14 12:45 | Emergency (ER) | payer OTHER ==
[~2019-04-14] VITALS: Ht 162.6 cm; Wt 79.5 kg
[2019-04-14] MEDS ORDERED: FAMOTIDINE 20 MG/2 ML VIAL IVP ONE (13:45)
[2019-04-14] MEDS ORDERED: ONDANSETRON PF 4 MG/2 ML VIAL. IVP ONE (13:45)
[2019-04-14 13:54] LABS: AMPHETAMINE/METHAMPHETAMINE NEG (NEG); BARBITURATES NEG (NEG); BENZODIAZEPINES NEG (NEG); CANNABINOIDS NEG (NEG); COCAINE NEG (NEG); METHADONE NEG (NEG); OPIATES NEG (NEG); PHENCYCLIDINE NEG (NEG)
[2019-04-14 13:57] LABS: BASO % 1 % (0-3); EOS # 0.1 x10^3/uL (0.0-0.7); EOS % 3 % (0-3); HEMATOCRIT 40.3 % (36.0-47.0); HEMOGLOBIN 13.2 g/dL (12.0-15.5); LYMPH # 0.8 x10^3/uL (1.0-4.8); LYMPH % 19 % (24-48); MEAN CORPUSCULAR HEMOGLOBIN 29 pg (25-35); MEAN CORPUSCULAR HGB CONC 33 g/dL (31-37); MEAN CORPUSCULAR VOLUME 89 fL (79-100); MONO # 0.4 x10^3/uL (0.0-1.1); MONO % 9 % (0-9); NEUT # 2.9 x10^3/uL (1.8-7.7); NEUT % 68 % (31-73); PLATELET COUNT 205 x10^3/uL (140-400); RED BLOOD COUNT 4.54 x10^6/uL (3.50-5.40); RED CELL DISTRIBUTION WIDTH 14.2 % (11.5-14.5); WHITE BLOOD COUNT 4.3 x10^3/uL (4.0-11.0)
[2019-04-14 13:57] LABS: BILIRUBIN,URINE NEGATIVE (NEG); CLARITY,URINE CLEAR; COLOR,URINE YELLOW; NITRITE,URINE NEGATIVE (NEG); PH,URINE 6.5; PROTEIN,URINE NEGATIVE (NEG-TRACE); UROBILINOGEN,URINE 0.2 mg/dL (0.2 mg/dL)
[2019-04-14 13:58] LABS: BACTERIA,URINE MANY /HPF (0-FEW); SQUAMOUS EPITHELIAL CELL,UR MANY /LPF
[2019-04-14] MEDS ORDERED: BISACODYL 5 MG TABLET.DR. PO STA (14:12)
[2019-04-14] MEDS ORDERED: MAGNESIUM CITRATE 296 ML SOLUTION. PO ONE (14:15)
[2019-04-14] MEDS ORDERED: KETOROLAC 30 MG/ML VIAL. IVP ONE (14:15)
--- NOTE | 2019-04-14 14:23 | RAD ---
EXAM: Abdomen acute complete. HISTORY: Pain. COMPARISON: CT obtained 06/06/2016. FINDINGS: A frontal view of the chest and frontal upright and supine views of the abdomen are obtained. There is no infiltrate, pleural effusion or pneumothorax. The heart is normal in size. There is gas and stool within the colon. There is a transitional lumbosacral segment, a normal variant. There are cholecystectomy clips. There is no free air. IMPRESSION: 1. No acute pulmonary finding. 2. Moderate colonic stool. Electronically signed by: Yina Villatoro MD (04/14/2019 2:20 PM) [facility]
[2019-04-14 14:36] LABS: ALBUMIN 3.5 g/dL (3.4-5.0); CALCIUM 8.7 mg/dL (8.5-10.1); CREATININE 0.6 mg/dL (0.6-1.0); GFR 112.5; POTASSIUM 4.3 mmol/L (3.5-5.1); TOTAL BILIRUBIN 0.9 mg/dL (0.2-1.0); TOTAL PROTEIN 7.1 g/dL (6.4-8.2)
--- NOTE | 2019-04-14 15:25 | PHYS DOC ---
Past Medical History Past Medical History: Anxiety, Depression, Hypothyroid Past Surgical History: Cholecystectomy, Hysterectomy, Tubal ligation Additional Past Surgical Histo: partial thyroidectomy,D&C,UTERINE ablation,ki dney stone removal Alcohol Use: Occasionally Drug Use: None Adult General Chief Complaint Chief Complaint: ABDOMINAL PAIN HPI HPI Patient is a 38 year old female with history of constipation who presents to the ED today complaining of 8 out of 10 epigastric abdominal pain described as sharp and intermittent that began a couple minutes prior to coming to the ED with, she reports she was coming from the doctor's office where she was evaluated for chest pain and her workup was negative. Patient reports her last normal bowel movement was yesterday. Review of Systems Review of Systems Constitutional: Denies fever or chills [] Eyes: Denies change in visual acuity, redness, or eye pain [] HENT: Denies nasal congestion or sore throat [] Respiratory: Denies cough or shortness of breath [] Cardiovascular: No additional information not addressed in HPI [] GI: Reports epigastric abdominal pain, denies nausea, vomiting, bloody stools or diarrhea [] : Denies dysuria or hematuria [] Musculoskeletal: Denies back pain or joint pain [] Integument: Denies rash or skin lesions [] Neurologic: Denies headache, focal weakness or sensory changes [] All other systems were reviewed and found to be within normal limits, except as documented in this note. Current Medications Current Medications Current Medications Medications (Trade) Dose Ordered Sig/Marisol Start Time Stop Time Status Last Admin Dose Admin Bisacodyl (Dulcolax Tab) 10 mg 1X STAT 04/14/19 14:12 04/14/19 14:13 DC 04/14/19 14:18 10 MG Famotidine (Pepcid Vial) 20 mg 1X ONCE 04/14/19 13:45 04/14/19 13:46 DC 04/14/19 13:56 20 MG Ketorolac Tromethamine (Toradol 30mg Vial) 30 mg 1X ONCE 04/14/19 14:15 04/14/19 14:16 DC 04/14/19 14:17 30 MG Magnesium Citrate (Citroma) 296 ml 1X ONCE 04/14/19 14:15 04/14/19 14:16 DC 04/14/19 14:18 296 ML Ondansetron HCl (Zofran) 4 mg 1X ONCE 04/14/19 13:45 04/14/19 13:46 DC 04/14/19 13:56 4 MG Allergies Allergies Allergies Coded Allergies Type Severity Reaction Last Updated Verified ciprofloxacin Allergy Intermediate Unknown 05/27/17 Yes sulfamethoxazole Allergy Intermediate Unknown 05/27/17 Yes trimethoprim Allergy Intermediate Unknown 05/27/17 Yes Physical Exam Physical Exam Constitutional: Well developed, well nourished, no acute distress, non-toxic appearance. [] HENT: Normocephalic, atraumatic, bilateral external ears normal, oropharynx moist, no oral exudates, nose normal. [] Eyes: PERRLA, EOMI, conjunctiva normal, no discharge. [] Neck: Normal range of motion, no tenderness, supple, no stridor. [] Cardiovascular:Heart rate regular rhythm, no murmur [] Lungs & Thorax: Bilateral breath sounds clear to auscultation [] Abdomen: Bowel sounds normal, soft, no tenderness, no masses, no pulsatile masses. [] Skin: Warm, dry, no erythema, no rash. [] Back: No tenderness, no CVA tenderness. [] Extremities: No tenderness, no cyanosis, no clubbing, ROM intact, no edema. [] Neurologic: Alert and oriented X 3, normal motor function, normal sensory function, no focal deficits noted. [] Psychologic: Affect normal, judgement normal, mood normal. [] Current Patient Data Vital Signs Vital Signs Date Time Temp Pulse Resp B/P (MAP) Pulse Ox O2 Delivery O2 Flow Rate FiO2 04/14/19 15:26 68 16 101/71 (81) 97 Room Air 04/14/19 13:00 97.7 97.7 Lab Values Laboratory Tests Test 04/14/19 12:49 04/14/19 13:50 Urine Collection Type Unknown Urine Color Yellow Urine Clarity Clear Urine pH 6.5 Urine Specific [place] 1.020 Urine Protein Negative mg/dL (NEG-TRACE) Urine Glucose (UA) Negative mg/dL (NEG) Urine Ketones (Stick) Negative mg/dL (NEG) Urine Blood Trace (NEG) Urine Nitrite Negative (NEG) Urine Bilirubin Negative (NEG) Urine Urobilinogen Dipstick 0.2 mg/dL (0.2 mg/dL) Urine Leukocyte Esterase Negative (NEG) Urine RBC 6-10 /HPF (0-2) Urine WBC 1-4 /HPF (0-4) Urine Squamous Epithelial Cells Many /LPF Urine Bacteria Many /HPF (0-FEW) Urine Mucus Marked /LPF Urine Opiates Screen Neg (NEG) Urine Methadone Screen Neg (NEG) Urine Barbiturates Neg (NEG) Urine Phencyclidine Screen Neg (NEG) Urine Amphetamine/Methamphetamine Neg (NEG) Urine Benzodiazepines Screen Neg (NEG) Urine Cocaine Screen Neg (NEG) Urine Cannabinoids Screen Neg (NEG) Urine Ethyl Alcohol Neg (NEG) White Blood Count 4.3 x10^3/uL (4.0-11.0) Red Blood Count 4.54 x10^6/uL (3.50-5.40) Hemoglobin 13.2 g/dL (12.0-15.5) Hematocrit 40.3 % (36.0-47.0) Mean Corpuscular Volume 89 fL (79-100) Mean Corpuscular Hemoglobin 29 pg (25-35) Mean Corpuscular Hemoglobin Concent 33 g/dL (31-37) Red Cell Distribution Width 14.2 % (11.5-14.5) Platelet Count 205 x10^3/uL (140-400) Neutrophils (%) (Auto) 68 % (31-73) Lymphocytes (%) (Auto) 19 % (24-48) L Monocytes (%) (Auto) 9 % (0-9) Eosinophils (%) (Auto) 3 % (0-3) Basophils (%) (Auto) 1 % (0-3) Neutrophils # (Auto) 2.9 x10^3/uL (1.8-7.7) Lymphocytes # (Auto) 0.8 x10^3/uL (1.0-4.8) L Monocytes # (Auto) 0.4 x10^3/uL (0.0-1.1) Eosinophils # (Auto) 0.1 x10^3/uL (0.0-0.7) Basophils # (Auto) 0.0 x10^3/uL (0.0-0.2) Sodium Level 143 mmol/L (136-145) Potassium Level 4.3 mmol/L (3.5-5.1) Chloride Level 107 mmol/L (98-107) Carbon Dioxide Level 30 mmol/L (21-32) Anion Gap 6 (6-14) Blood Urea Nitrogen 14 mg/dL (7-20) Creatinine 0.6 mg/dL (0.6-1.0) Estimated GFR (Cockcroft-Gault) 112.5 BUN/Creatinine Ratio 23 (6-20) H Glucose Level 88 mg/dL (70-99) Calcium Level 8.7 mg/dL (8.5-10.1) Total Bilirubin 0.9 mg/dL (0.2-1.0) Aspartate Amino Transferase (AST) 17 U/L (15-37) Alanine Aminotransferase (ALT) 19 U/L (14-59) Alkaline Phosphatase 96 U/L (46-116) Total Protein 7.1 g/dL (6.4-8.2) Albumin 3.5 g/dL (3.4-5.0) Albumin/Globulin Ratio 1.0 (1.0-1.7) Lipase 123 U/L (73-393) Ethyl Alcohol Level < 10 mg/dL (0-10) Laboratory Tests 04/14/19 13:50 Laboratory Tests 04/14/19 13:50 EKG EKG [] Radiology/Procedures Radiology/Procedures []PROCEDURE: ACUTE ABDOMEN SERIES EXAM: Abdomen acute complete. HISTORY: Pain. COMPARISON: CT obtained 06/06/2016. FINDINGS: A frontal view of the chest and frontal upright and supine views of the abdomen are obtained. There is no infiltrate, pleural effusion or pneumothorax. The heart is normal in size. There is gas and stool within the colon. There is a transitional lumbosacral segment, a normal variant. There are cholecystectomy clips. There is no free air. IMPRESSION: 1. No acute pulmonary finding. 2. Moderate colonic stool. Electronically signed by: Yina Villatoro MD (04/14/2019 2:20 PM) [facility] [place] DICTATED and SIGNED BY: YINA VILLATORO MD DATE: 04/14/19 1754 Course & Med Decision Making Course & Med Decision Making Pertinent Labs and Imaging studies reviewed. (See chart for details) This is a 38-year-old female patient presented to the ED today complaining of epigastric abdominal pain, history of constipation. Labs are negative. Acute abdominal series noted for constipation. Discharged to home with constipation management information. Dragon Disclaimer Dragon Disclaimer This electronic medical record was generated, in whole or in part, using a voice recognition dictation system. Departure Departure Impression: Primary Impression: Constipation Disposition: HOME, SELF-CARE Condition: STABLE Referrals: CHEY PHAM MD (PCP) Follow-up in one week Patient Instructions: Constipation, Adult Additional Instructions: Your x-ray shows are constipated. Please consider increasing your dietary fiber intake as well as water intake. Take MiraLAX every day. Try and exercise. Whenever you are constipated take magnesium citrate. Problem Qualifiers Primary Impression: Constipation Constipation type: unspecified constipation type Qualified Codes: K59.00 - Constipation, unspecified [employer] Apr 14, 2019 15:25
[2019-04-14 15:26] VITALS: BP 101/71
== END 2019-04-14 15:34 | disposition home or self-care (01) ==
LOC: ER 12:45
DX: K59.00 Constipation, unspecified (principal); R10.13 Epigastric pain; F41.9 Anxiety disorder, unspecified; F32.9 Major depressive disorder, single episode, unspecified; E03.9 Hypothyroidism, unspecified; Z90.710 Acquired absence of both cervix and uterus; Z90.49 Acquired absence of other specified parts of digestive tract; Z98.51 Tubal ligation status; Z98.890 Other specified postprocedural states; Z88.2 Allergy status to sulfonamides; Z88.8 Allergy status to other drugs, medicaments and biological substances
CPT/HCPCS: 36415; 74022; 80053; 80307; 81001; 83690; 85025; 96374; 96375; 99285; G0480; J1885; J2405; J3490

== ENCOUNTER → 2019-07-06 | Outpatient (CLI) | payer OTHER ==
[~2019-07-06] MED LIST changes: +IOHEXOL 240 MG/ML 50ML VIAL. PO ONE; +IOHEXOL 300 MG/ML 100ML VIAL. IV ONE
--- NOTE | 2019-07-06 10:27 | RAD ---
Study: CT abdomen/pelvis with intravenous contrast Indication: Rectal bleeding. Abdominal pain. Comparison: 06/06/2016 Technique: Helical CT imaging performed of the abdomen and pelvis after the intravenous administration of 75 cc Omnipaque 300 contrast. 30 cc Omnipaque 240 oral contrast administered as well. Sagittal and coronal reformats were obtained. One or more of the following individualized dose reduction techniques were utilized for this examination: 1. Automated exposure control 2. Adjustment of the mA and/or kV according to patient size 3. Use of iterative reconstruction technique. Findings: Chest: No newly seen abnormality. Liver: Unchanged. Gallbladder/Biliary Tree: Surgically absent. Pancreas: Unremarkable. Spleen: Unremarkable. Adrenal Glands: Unremarkable. Kidneys/Ureters/Bladder: Suspected no obstructing intrarenal stone at the lower pole the left kidney, image 35 series 2, measuring 4 mm. Reproductive Organs: Absent uterus. Colon: Unremarkable. Appendix: Not visualized. No inflammatory changes at its expected location. Small Bowel: Nonobstructed. Stomach: Unremarkable. Vasculature: Unremarkable. Lymph Nodes: Within normal limits. Peritoneum and Body Wall: No free fluid or air. Unremarkable body wall soft tissues. Bones: No acute or aggressive osseous process. Miscellaneous: None. Impression: 1. No acute process seen throughout the abdomen/pelvis. No abnormality by CT to account for the patient's reported rectal bleeding. 2. Small nonobstructing intrarenal stone at the lower pole of the left kidney measuring approximate 4 mm. Electronically signed by: LAUREL VITAL MD (07/06/2019 10:24 AM) [id number]
== END | disposition home or self-care (01) ==
LOC: CT 08:44
PROVIDERS: ATTEND Internal Medicine Gastroenterology
DX: N20.0 Calculus of kidney (principal); K62.5 Hemorrhage of anus and rectum; R10.9 Unspecified abdominal pain
CPT/HCPCS: 74177; Q9966; Q9967

== ENCOUNTER → 2019-07-12 | Day surgery (SDC) | payer OTHER ==
[~2019-07-12] MED LIST changes: +HYDROmorphone 2 MG/ML VIAL IV PRN; -IOHEXOL 240 MG/ML 50ML VIAL. PO ONE; -IOHEXOL 300 MG/ML 100ML VIAL. IV ONE; +IV RINGERS,LACTATED 1000ML 1,000 ML IV SCH; +LIDOCAINE 1% PF 2 ML VIAL. ID PRN; +MORPHINE SULFATE 2 MG/ML VIAL. IV PRN; +ONDANSETRON PF 4 MG/2 ML VIAL. IV PRN; +PROCHLORPERAZINE 10 MG/2 ML VIAL. IV PRN; +PROPOFOL 40 ML IV ONE; +THYR90TA PO; +fentaNYL PF VIAL 100 MCG/2 ML VIAL IV PRN
[2019-07-12 07:52] VITALS: BP 106/61
== END ==
LOC: ENDOS 05:50
PROVIDERS: ATTEND Internal Medicine Gastroenterology
DX: R19.4 Change in bowel habit (principal); K64.0 First degree hemorrhoids; K92.2 Gastrointestinal hemorrhage, unspecified; K21.9 Gastro-esophageal reflux disease without esophagitis; D64.9 Anemia, unspecified; E89.0 Postprocedural hypothyroidism; F32.9 Major depressive disorder, single episode, unspecified; F41.9 Anxiety disorder, unspecified; E66.3 Overweight; Z68.29 Body mass index [BMI] 29.0-29.9, adult; Z90.49 Acquired absence of other specified parts of digestive tract; Z87.442 Personal history of urinary calculi; Z90.710 Acquired absence of both cervix and uterus; Z90.721 Acquired absence of ovaries, unilateral; Z72.89 Other problems related to lifestyle
CPT/HCPCS: 45378; J2704

== ENCOUNTER → 2019-09-20 | Outpatient (CLI) | payer OTHER ==
[2019-07-12 07:52] VITALS: BP 106/61
[~2019-09-20] MED LIST changes: +ESTR-113 PO; -ESTR1TAB15 PO; -HYDROmorphone 2 MG/ML VIAL IV PRN; -IV RINGERS,LACTATED 1000ML 1,000 ML IV SCH; -LIDOCAINE 1% PF 2 ML VIAL. ID PRN; -MORPHINE SULFATE 2 MG/ML VIAL. IV PRN; -ONDANSETRON PF 4 MG/2 ML VIAL. IV PRN; -PROCHLORPERAZINE 10 MG/2 ML VIAL. IV PRN; -PROPOFOL 40 ML IV ONE; -fentaNYL PF VIAL 100 MCG/2 ML VIAL IV PRN
--- NOTE | 2019-09-20 16:06 | KCIC ---
LUMBAR SPINE WO CONTRAST History: Reason: LOW BACK PAIN / Spl. Instructions: / History: Pain a couple of wks., Lt radiculopathy, injured carrying heavy laundry. Technique: Multiplanar, multi sequential MR imaging was performed of the lumbar spine. Comparison: None Findings: Transitional lumbosacral anatomy with sacralization of L5. L5-S1 is identified on axial T2 series 6 image 32. Normal vertebral body height and alignment. No fracture. Conus terminates at the normal location. No evidence of nerve root clumping. T12-L1: No canal or neuroforaminal narrowing. L1-L2: No canal or neuroforaminal narrowing. L2-L3: No canal or neuroforaminal narrowing. Mild facet arthropathy. L3-L4: Minimal disc bulge. Mild facet arthropathy. No canal or neuroforaminal narrowing. L4-L5: Disc bulge. Moderate facet arthropathy. No canal narrowing. Mild bilateral neuroforaminal narrowing. L5-S1: Rudimentary disc. No canal or neuroforaminal narrowing. Impression: 1. Transitional lumbosacral anatomy with sacralization of L5. 2. Lumbar spondylosis most prominent L4-L5. 3. Mild bilateral L4-L5 neuroforaminal narrowing. Electronically signed by: Wallace Guthrie DO (09/20/2019 4:02 PM) [id number]
== END ==
LOC: KCIC MRI 14:32
PROVIDERS: ATTEND Family Medicine
DX: M47.816 Spondylosis without myelopathy or radiculopathy, lumbar region (principal); M48.061 Spinal stenosis, lumbar region without neurogenic claudication; M43.27 Fusion of spine, lumbosacral region
CPT/HCPCS: 72148

== ENCOUNTER → 2019-09-28 | Outpatient (CLI) | payer OTHER ==
[2019-07-12 07:52] VITALS: BP 106/61
[~2019-09-28] MED LIST changes: +BUSP15TA PO; +CITA40TA12 PO; +IOHEXOL 180 MG/ML 10 ML VIAL. ONE; +OMEP40CA45 PO; +methylPREDNISolone ACETATE 40 MG/ML VIAL. ONE; +methylPREDNISolone ACETATE 80 MG/ML VIAL. ONE
--- NOTE | 2019-09-28 15:39 | PAIN ---
DATE OF SERVICE: 09/28/2019 INITIAL CONSULTATION FOR PAIN CLINIC CHIEF COMPLAINT: Low back and left greater than right lower extremity pain. HISTORY OF PRESENT ILLNESS: This is a 39-year-old female who presents with history of pain in the low back, bilateral lower extremities left greater than right, in the posterior gluteus, lateral thigh, anterior thigh, medial thigh, medial lower legs, again worse on the left than right since 08/26/2019. 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 The patient reports it is worse with walking, standing, changing positions, does awaken her from sleep at least 2-3 times a night, does not affect her bowel or bladder control, but does affect her ability to walk. She is not using any assistive devices, however. The patient reports tingling and numbness in the leg on the left greater than right, but present bilaterally. The patient did have a chiropractic treatment, which was not significantly helpful and these have been helpful for her in the past. The patient did have an MRI scan of the lumbar spine dated 09/20/2019 that shows L3-L4 minimal disk bulge, L4-L5 shows disk bulge with moderate facet arthropathy, mild bilateral neural foraminal narrowing and L5-S1 with rudimentary disk with no foraminal narrowing at that level. The patient rates her disability rating from 0-10, 10 being the worst, is an 8 with family and home responsibilities, 9 with recreation and sexual behavior, 10 with social activity and occupation, 6 with self-care and 0 with life support activities. The patient has tried smac-tqh-mivwwwp analgesics and Motrin as well as Tylenol with only minimal decrease in pain. She did have a steroid dosepak as well, which did help by about 50% at that time. PAST MEDICAL HISTORY: Significant for irritable bowel syndrome, gastritis, headaches; otherwise, been in fairly good health. PREVIOUS SURGERY: Include thyroidectomy, D and C, cholecystectomy, kidney stone ablation, tubal ligation, and total abdominal hysterectomy in the past. CURRENT MEDICATIONS: Include buspirone, Celexa, thyroid replacement, progesterone, vitamin D and B12, and gabapentin. ALLERGIES: THE PATIENT IS ALLERGIC TO CIPRO AND BACTRIM. FAMILY HISTORY: Significant for no major medical problems or conditions that she is aware of. SOCIAL HISTORY: The patient does not smoke tobacco products. Denies any illegal, illicit or recreational drugs. 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 REVIEW OF SYSTEMS: The patient's review of systems is positive for those items mentioned in history of present illness. All systems reviewed and otherwise negative. It is complete, full and well documented on the patient's chart. PHYSICAL EXAMINATION: VITAL SIGNS: The patient's blood pressure is 121/83, pulse 96, respirations 16, temperature 98.5 degrees Fahrenheit, height is 5 feet 4 inches, weight is 185 pounds. GENERAL: The patient is awake, alert, oriented, appropriate, very pleasant demeanor. HEENT: Shows normocephalic, atraumatic. Extraocular movements are intact and symmetrical. Oral cavity: Mucous membranes moist and pink. Dentition is intact. NECK: Shows anterior throat supple without palpable lymphadenopathy noted. Swallow reflex symmetrical. CHEST: Shows normal on inspection. Breath sounds clear to auscultation bilaterally. HEART: Shows S1, S2 clear. No murmurs auscultated. ABDOMEN: Soft, nontender, nondistended. No palpable organomegaly is noted. No rebound or guarding demonstrated. BACK: Shows spine grossly in the midline. Normal appearing thoracic kyphosis and minor flattening of lumbar lordotic curvature. No previous surgical scars noted. Lumbar paraspinous muscle shows symmetrical on inspection, on palpation shows some moderate tenderness diffusely bilaterally going diffusely without significant radiation. The patient has good rotational motion of lumbar spine, both laterally greater than 10 degrees right and left as well as full extension greater than 10 degrees, forward flexion at 45 degrees without significant increase in pain. EXTREMITIES: The patient's lower extremities show deep tendon reflexes at 2+ in the patellar, 1+ tendo-calcaneus tendons. Motor exam is strong with 5/5 dorsiflexion, extension, quadriceps and hamstring flexion symmetrical. Peripheral pulses are 1+ posterior tibia. No peripheral edema is noted bilaterally. Straight leg raising noted to be negative for reproduction of radicular symptoms bilaterally as well. The patient is able to stand, stand on her toes without significant difficulty or loss of balance, walks with a normal appearing gait for short distance in the office today without significant favoring the right or left lower extremity, not using any assistive devices to ambulate. SKIN: The patient's skin shows warm and dry, good turgor. No edema. No sores, rashes or bruising throughout. IMPRESSION: This is a 39-year-old female with a history of injury while at work on 08/26/2019, status post chiropractic treatment, oral analgesics and stretching and strengthening exercises on her own without significant improvement with pain in low back, bilateral lower extremity in a radicular fashion, especially on the left. PLAN: Options were discussed with the patient including conservative medical managements, physical therapies and interventional techniques. She would like to pursue interventional techniques. We discussed a lumbar epidural steroid injection using description as well as anatomical models to describe the procedure. Risks were then discussed including, but not limited to bleeding, infection, possibility of epidural hematoma, subsequent neurological compromise, dural puncture, headaches, spinal cord and/or nerve damage, side effects of steroid medication and poor results regarding pain control. The patient understands and wished to proceed. The patient will return to clinic in approximately 2 weeks for followup. She was counseled as to return appointment, activity level and side effects to be aware of. DIAGNOSES: Lumbar radiculopathy with lumbar degenerative disk disease. PROCEDURE: Lumbar epidural steroid injection, translaminar approach at L4-L5 level using C-arm fluoroscopic guidance under sterile prep and drape using local anesthetic. MEDICATION INJECTED: A total of 120 mg Depo-Medrol plus 10 mL of preservative-free normal saline and 2 mL of contrast. CONDITION AT DISCHARGE: Stable. The patient tolerated the procedure well, had no complications. KERRY MAK MD DR: ARIEL/dafne JOB#: [id number] / [id number] CHEY Ramsey MD
== END ==
LOC: PNCL 14:07
PROVIDERS: ATTEND Anesthesiology
DX: M51.16 Intervertebral disc disorders with radiculopathy, lumbar region (principal); Z98.890 Other specified postprocedural states; Z88.8 Allergy status to other drugs, medicaments and biological substances
CPT/HCPCS: 62323; J1030; J1040; Q9965

== ENCOUNTER → 2019-10-13 | Outpatient (CLI) | payer OTHER ==
[2019-07-12 07:52] VITALS: BP 106/61
--- NOTE | 2019-10-13 12:10 | PAIN ---
DATE OF SERVICE: 10/13/2019 PROGRESS NOTE FOR PAIN CLINIC DIAGNOSES: Lumbar radiculopathy with lumbar degenerative disk disease. HISTORY OF PRESENT ILLNESS: The patient is a 39-year-old female who returns for followup status post lumbar epidural steroid injection x 1. The patient reports about 60% improvement in the low back and the left lower extremity. The patient reports still significant pain, however, with standing, walking, changing positions from seated to standing and vice versa with pain in the left leg and low back radiating to the posterior gluteus, posterolateral thigh, lateral anterior thigh, anterior medial thigh and posterior calf on the left side. Patient reports is 7 on a scale of 10 at its worst over the past week, 5 on average and 4 at its least and is a 5 today. The patient reports it is radiating, cramping, aching, shooting, on and off in intensity, again worse with activity, standing and walking as she is required to do at work. The patient reports no new motor or sensory deficits, no new bowel or bladder incontinence, still significant pain in the left leg and low back. She has been taking ibuprofen, doing cold packs to the low back, which helps, but only temporarily. The patient reports it awakens her from sleep once every 2-3 hours. PHYSICAL EXAMINATION: VITAL SIGNS: The patient's blood pressure 121/84, pulse 99, respirations 16, temperature 97.9 degrees Fahrenheit, height is 5 feet 4 inches, weight is 188 pounds. GENERAL: The patient is awake, alert, oriented, appropriate, very pleasant demeanor. HEENT: Shows normocephalic, atraumatic. Extraocular movements are intact and symmetrical. Oral cavity: Mucous membranes moist and pink. Dentition is intact. NECK: Shows anterior throat supple without palpable lymphadenopathy noted. Swallow reflex symmetrical. CHEST: Shows normal on inspection. Breath sounds are clear bilaterally. HEART: Shows S1, S2 clear. ABDOMEN: Obese, soft, nontender, nondistended. BACK: Shows spine grossly in the midline, slight exaggerated thoracic kyphosis and minor flattening of lumbar lordotic curvature. Lumbar paraspinous muscle shows symmetrical on inspection, with palpation shows some moderate tenderness diffusely bilaterally going diffusely without significant radiation. The patient has good rotational motion of the lumbar spine, both laterally as well as extension and flexion without significant increase in pain. No tenderness over the spinous processes, sacrum or sacroiliac regions. EXTREMITIES: Lower extremities show deep tendon reflexes 2+ in the patellar and tendo calcaneus tendons are 1+. Motor exam is strong with 5/5 dorsiflexion, extension, equal. Peripheral pulses are 1+. No peripheral edema is noted. Options were discussed with the patient. The patient's old chart was reviewed as her current medication regimen updated. Current review of systems updated today as well. We will proceed second lumbar epidural steroid injection today with fluoroscopic guidance. Risks were again discussed including, but not limited to bleeding, infection, possibility of epidural hematoma, subsequent neurological compromise, dural puncture, headaches, spinal cord and/or nerve damage, side effects of steroid medication and poor results regarding pain control. The patient understands and wished to proceed. The patient will return to clinic in approximately 2 weeks for followup. She was counseled on return appointment, activity level and side effects to be aware of. We discussed the patient's return to work and would recommend light duty work as tolerated, starting on 10/15 and see how she does with this pending followup after today's injection for potential third injection if necessary. It would be certainly acceptable starting on 10/15/2018. DIAGNOSIS: Lumbar radiculopathy with lumbar degenerative disk disease. PROCEDURE: Lumbar epidural steroid injection, translaminar approach at L4-L5 level using C-arm fluoroscopic guidance under sterile prep and drape using local anesthetic. MEDICATION INJECTED: A total of 120 mg Depo-Medrol plus 10 mL of preservative-free normal saline and 2 mL of contrast. CONDITION AT DISCHARGE: Stable. The patient tolerated procedure well, had no complications. KERRY MAK MD DR: ARIEL/dafne JOB#: [id number] / [id number]
== END | disposition home or self-care (01) ==
LOC: PNCL 10:47
PROVIDERS: ATTEND Anesthesiology
DX: M51.16 Intervertebral disc disorders with radiculopathy, lumbar region (principal); Z88.8 Allergy status to other drugs, medicaments and biological substances; Z79.899 Other long term (current) drug therapy
CPT/HCPCS: 62323; J1030; J1040; Q9965

== ENCOUNTER 2019-10-17 16:02 | Emergency (ER) | payer OTHER ==
[~2019-10-17] VITALS: Ht 162.6 cm; Wt 79.0 kg
[~2019-10-17 16:02] MED LIST changes: -IOHEXOL 180 MG/ML 10 ML VIAL. ONE; -OMEP40CA45 PO; -methylPREDNISolone ACETATE 40 MG/ML VIAL. ONE; -methylPREDNISolone ACETATE 80 MG/ML VIAL. ONE
[2019-10-17] MEDS ORDERED: MAG HYDROX/ALUMINUM HYD/SIMETH 30 ML ORAL.SUSP PO ONE (16:45)
[2019-10-17] MEDS ORDERED: FAMOTIDINE 20 MG TABLET. PO ONE (16:45)
[2019-10-17] MEDS ORDERED: IV NORMAL SALINE 1000ML BAG 1,000 ML IV ONE (16:45)
[2019-10-17] MEDS ORDERED: METOCLOPRAMIDE HCL 10 MG/2 ML VIAL. IVP ONE (16:45)
--- NOTE | 2019-10-17 16:46 | PHYS DOC ---
Past Medical History Past Medical History: Depression, Hypothyroid, Kidney Stone Additional Past Medical Histor: "back injury at work" Past Surgical History: Cholecystectomy, Hysterectomy, Tubal ligation Additional Past Surgical Histo: partial thyroidectomy,D&C,UTERINE ablation,kidney stone removal Smoking Status: Never Smoker Alcohol Use: Occasionally Drug Use: None General Adult EDM: Chief Complaint: WEAKNESS/GENERALIZED HPI: HPI: Patient is a 39 year old female who presents with chief complaint of abdominal pain. Patient reports that she has a history of constipation type IBS and is recently underwent colonoscopy as part of the work-up for this problem. Today she reports that at 11 PM on Wednesday evening she began to have pain that woke her up in the bilateral lower quadrant similar to what she has had in the past with constipation pain. She stated that this was associated with regurgitation resulting in vomiting since last night. Patient reports multiple episodes of regurgitation and vomiting. She reported she took 2 Dulcolax prior to arrival which resulted in 3 watery stools but no formed stool. Patient denied melena, hematochezia or hematemesis. She also denied fever, chills or sweats. She reports the pain again is bilateral, lower quadrant nonradiating and at times sharp but otherwise described as a discomfort. Patient denied any cough, recent exposure to COVID 19, fever, chills, sore throat but reports globus sensation in the neck since she started vomiting. Patient denied hematuria pyuria or dysuria. She did think that her urine was somewhat dark. She denied chest pain, shortness of breath or any focal neurological changes. Review of Systems: Review of Systems: Constitutional: Denies fever or chills. [] Eyes: Denies change in visual acuity. [] HENT: Denies nasal congestion or sore throat. [] Respiratory: Denies cough or shortness of breath. [] Cardiovascular: Denies chest pain or edema. [] GI: See HPI : Denies dysuria. [] Musculoskeletal: Denies back pain or joint pain. [] Integument: Denies rash. [] Neurologic: Denies headache, focal weakness or sensory changes. [] Endocrine: Denies polyuria or polydipsia. [] Lymphatic: Denies swollen glands. [] Psychiatric: Denies depression or anxiety. [] Heart Score: Risk Factors: Risk Factors: DM, Current or recent (<one month) smoker, HTN, HLP, family history of CAD, obesity. Risk Scores: Score 0 - 3: 2.5% MACE over next 6 weeks - Discharge Home Score 4 - 6: 20.3% MACE over next 6 weeks - Admit for Clinical Observation Score 7 - 10: 72.7% MACE over next 6 weeks - Early Invasive Strategies Allergies: Allergies: Allergies Coded Allergies Type Severity Reaction Last Updated Verified ciprofloxacin Allergy Intermediate Unknown 05/27/17 Yes sulfamethoxazole Allergy Intermediate Unknown 05/27/17 Yes trimethoprim Allergy Intermediate Unknown 05/27/17 Yes Physical Exam: PE: Constitutional: Well developed, well nourished, no acute distress, non-toxic appearance. [] HENT: Normocephalic, atraumatic, bilateral external ears normal, oropharynx moist, no oral exudates, nose normal. [] Eyes: PERRLA, EOMI, conjunctiva normal, no discharge. [] Neck: Normal range of motion, no tenderness, supple, no stridor. [] Cardiovascular:Heart rate regular rhythm, no murmur [] Lungs & Thorax: Bilateral breath sounds clear to auscultation [] Abdomen: Soft, positive bowel sounds, diffusely tender, mild. No guarding or rebound, no hepatosplenomegaly. Negative Guajardo sign, negative Rovsing sign. Skin: Warm, dry, no erythema, no rash. [] Back: No tenderness, no CVA tenderness. [] Extremities: No tenderness, no cyanosis, no clubbing, ROM intact, no edema. [] Neurologic: Alert and oriented X 3, normal motor function, normal sensory function, no focal deficits noted. [] Psychologic: Affect normal, judgement normal, mood normal. [] Current Patient Data: Vital Signs: Vital Signs Date Time Temp Pulse Resp B/P (MAP) Pulse Ox O2 Delivery O2 Flow Rate FiO2 10/17/19 16:12 97.3 111 16 147/88 (107) 99 Room Air 97.3 EKG: EKG: [] Radiology/Procedures: Radiology/Procedures: [] Course & Med Decision Making: Course & Med Decision Making Pertinent Labs and Imaging studies reviewed. (See chart for details) 1809-the patient was seen and reevaluated. Her abdominal exam remains benign. Her laboratory work-up is unremarkable for any exigent medical or surgical problem. Clinically the patient improved with the medications rendered here in the emergency department. I discussed with the patient reasons to return, treatment plan and need for follow-up. [] Dragon Disclaimer: Dragon Disclaimer: This electronic medical record was generated, in whole or in part, using a voice recognition dictation system. Departure Departure Impression: Primary Impression: Irritable bowel syndrome (IBS) Additional Impressions: GERD with esophagitis Generalized abdominal pain Mild dehydration Disposition: HOME, SELF-CARE Condition: IMPROVED Referrals: CHEY PHAM MD (PCP) Patient Instructions: Abdominal Pain (Nonspecific), Irritable Bowel Syndrome Additional Instructions: Glycerin suppositories as needed [id number], consider fleets enemas in the future for constipation. Try to avoid ugjc-oad-ajcysqi stimulants such as Dulcolax. MiraLAX [id number] 1 scoop twice a day with a glass of water. Please make sure you follow-up with your primary care physician in the next 7 to 10 days. Scripts Omeprazole (OMEPRAZOLE) 40 Mg Capsule.dr 1 CAP PO DAILY, #30 CAP 3 Refills Take 1/2 hour before the first meal of the day Prov: CARLOS ALDANA MD 10/17/19 Justicifation of Admission Dx: Justifications for Admission: Justification of Admission Dx: N/A CARLOS ALDANA MD Oct 17, 2019 16:46
[2019-10-17 16:47] VITALS: BP 132/86
[2019-10-17 16:54] LABS: BASO % 0 % (0-3); EOS % 0 % (0-3); HEMATOCRIT 42.6 % (36.0-47.0); HEMOGLOBIN 14.2 g/dL (12.0-15.5); LYMPH % 24 % (24-48); MEAN CORPUSCULAR HEMOGLOBIN 29 pg (25-35); MEAN CORPUSCULAR HGB CONC 33 g/dL (31-37); MEAN CORPUSCULAR VOLUME 88 fL (79-100); MONO # 0.6 x10^3/uL (0.0-1.1); MONO % 7 % (0-9); NEUT # 5.6 x10^3/uL (1.8-7.7); NEUT % 68 % (31-73); PLATELET COUNT 281 x10^3/uL (140-400); RED BLOOD COUNT 4.83 x10^6/uL (3.50-5.40); RED CELL DISTRIBUTION WIDTH 14.7 % (11.5-14.5); WHITE BLOOD COUNT 8.2 x10^3/uL (4.0-11.0)
[2019-10-17 17:02] LABS: CALCIUM 9.1 mg/dL (8.5-10.1); CREATININE 0.9 mg/dL (0.6-1.0); GFR 70.1; POTASSIUM 3.6 mmol/L (3.5-5.1)
[2019-10-17 17:08] LABS: ALBUMIN 3.6 g/dL (3.4-5.0); ALBUMIN/GLOBULIN RATIO 0.8 (1.0-1.7); TOTAL BILIRUBIN 0.7 mg/dL (0.2-1.0); TOTAL PROTEIN 8.2 g/dL (6.4-8.2)
[2019-10-17 17:23] LABS: BILIRUBIN,URINE NEGATIVE (NEG); CLARITY,URINE CLOUDY; COLOR,URINE YELLOW; NITRITE,URINE NEGATIVE (NEG); PROTEIN,URINE NEGATIVE (NEG-TRACE); UROBILINOGEN,URINE 0.2 mg/dL (0.2 mg/dL)
[2019-10-17 17:30] LABS: SQUAMOUS EPITHELIAL CELL,UR MANY /LPF
[2019-10-17 17:31] LABS: BACTERIA,URINE MODERATE /HPF (0-FEW)
[2019-10-17 17:34] LABS: RBC,URINE OCC /HPF (0-2)
[2019-10-17] MEDS ORDERED: OMEP40CA45 PO (18:17)
--- NOTE | 2019-10-18 14:58 | EKG ---
[facility] [address] [place] [address] Test Date: 2019-10-17 Test Time: 16:17:51 Pat Name: ELMA CHOWDARY Department: Room: Gender: F Manager Party: : [id number] Requested By: CARLOS ALDANA Order Number: [id number] Reading MD: Measurements Intervals Spencer Rate: 100 P: 0 [place]: 130 QRS: 24 QRSD: 88 T: 43 QT: 334 QTc: 434 Interpretive Statements SINUS RHYTHM NORMAL ECG RI6.01 No previous ECG available for comparison
== END 2019-10-17 18:29 | disposition home or self-care (01) ==
LOC: ER 16:02
DX: K58.9 Irritable bowel syndrome, unspecified (principal); K21.0 Gastro-esophageal reflux disease with esophagitis; R10.84 Generalized abdominal pain; E86.0 Dehydration; F32.9 Major depressive disorder, single episode, unspecified; E03.9 Hypothyroidism, unspecified; Z87.442 Personal history of urinary calculi; Z90.710 Acquired absence of both cervix and uterus; Z90.49 Acquired absence of other specified parts of digestive tract; Z98.51 Tubal ligation status; Z98.890 Other specified postprocedural states; Z88.1 Allergy status to other antibiotic agents; Z88.2 Allergy status to sulfonamides; Z88.8 Allergy status to other drugs, medicaments and biological substances
CPT/HCPCS: 36415; 80053; 81001; 83690; 85025; 87086; 93005; 96361; 96374; 99284; J2765; J7030

== ENCOUNTER → 2019-10-27 | Outpatient (CLI) | payer OTHER ==
[2019-10-17 16:47] VITALS: BP 132/86
[~2019-10-27] MED LIST changes: +BUPIVACAINE MPF 0.25% 10 ML VIAL. ONE; +IOHEXOL 180 MG/ML 10 ML VIAL. ONE; +OMEP40CA45 PO; +methylPREDNISolone ACETATE 80 MG/ML VIAL. ONE
--- NOTE | 2019-10-27 10:13 | PDOC ---
Progress Note - Pain Clinic Date of Service: DOS: DATE: 10/27/19 TIME: 10:04 Diagnosis: Dx: Lumbar radiculopathy with lumbar degenerative disc disease History or Present Illness: HPI: 39-year-old female returns to follow-up status post lumbar procedure injections x2. Patient reports about 70% improvement initially and the low back still helping and significantly reduced however significant pain in the left lower extremity posterior gluteus lateral thigh anterior thigh medial thigh medial lower leg into the ankle and calf. Patient which is much worse with walking standing change positions lifting or bending and activities she is performing at work. 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 injury. Patient ports pain is aching sharp tight shooting in the left lower extremity tingling cramping stabbing some in the right leg as well but not as severe as the left patient ports that can be intense and constant unbearable at times patient rates an 8 on a scale of 10 is worse with the past week 5 on average 3 this least is an 8 today. Patient reports no new motor or sensory deficits no bowel or bladder incontinence reports some leg cramps in the left leg especially after working and at night. Physical Exam: VS: Blood pressure is 113/80 pulse 94 respirations 16 temperature 99.2 F height is 5 foot 4 inches weight is 1 8 6 pounds PE: PHYSICAL EXAMINATION: GENERAL: The patient is awake, alert, oriented, appropriate, very pleasant demeanor HEENT: Shows normocephalic, atraumatic. Extraocular movements are intact and symmetrical. Oral cavity: Mucous membranes moist and pink. Dentition is intact. NECK: Shows anterior throat supple without palpable lymphadenopathy noted. Swallow reflex symmetrical. CHEST: Shows normal on inspection. Breath sounds are clear bilaterally. HEART: Shows S1, S2 clear. No murmurs. ABDOMEN: Soft, nontender, nondistended. No palpable organomegaly is noted. No rebound or guarding demonstrated. BACK: Shows spine grossly in the midline. Normal-appearing cervical lordotic curvature. There is slightly increased thoracic kyphosis, some minor flattening of the lumbar lordotic curvature. Lumbar paraspinous muscles show symmetrical on inspection, on palpation shows some moderate tenderness diffusely throughout the upper, middle and lower distribution of the paraspinous muscles bilaterally without specific trigger points, without radiation of pain. The patient has good rotational motion of the lumbar spine, both laterally as well as extension and flexion without significant difficulty. No tenderness over the spinous processes, sacrum or sacroiliac regions. EXTREMITIES: Lower extremities show deep tendon reflexes 2+ in the patellar and tendo calcaneus tendons. Motor exam is 5 on a scale of 5 with right dorsiflexion, extension, quadriceps and hamstring flexion and 5/5 on the left. Peripheral pulses are 1+ posterior tibial. No peripheral edema is noted bilaterally. Lower extremities are warm and dry to touch, equal in color and appearance. SKIN: Shows warm and dry, good turgor. No edema. No sores, rashes or bruising throughout. Procedure: Procedure: Options were discussed with the patient. Patient's old chart was reviewed as her current medication regimen updated current review of systems updated today as well. Patient will proceed with left L4-5 transforaminal injection. Risks were discussed including but not limited to: Bleeding infection possibility of epidural hematoma and subsequent neurological compromise dural puncture headache spinal cord and or nerve damage side effects of steroid medication potential injection into vertebral artery at that level and permanent ischemic damage was poor results regarding pain control and exposure to fluoroscopy. Patient understands wished to proceed. Patient return to clinic in approximately 2 weeks for follow-up or as necessary this to be the third injection in the series with 2 translaminar injections and today's transforaminal. Medication Injected: Med Injected: Under sterile prep and drape patient was placed in prone position using C-arm fluoroscopic guidance to identify the L4-5 distribution oblique and slightly cephalad angled C arm. The left L4-5 target was identified and using lidocaine for anesthetizing the skin 22-gauge Juan Alberto pencil point needle was then used to enter the skin and into the subcutaneous tissues using direct C-arm fluoroscopic guidance to guide the needle into the transforaminal aspect of the left L4-5 vertebrae this was confirmed with lateral views showing the needle tip in the superior aspect of the paravertebral region. Aspiration was noted to be -1.5 cc of contrast was then injected with good spread both medially into the epidural space as well as laterally along the nerve root without uptake and without distribution and uptake on digital subtraction. This time solution containing 2 cc of 0.25% bupivacaine and 80 mg of Depo-Medrol was then injected. Needle was withdrawn and sterile bandage was applied. Patient tolerated procedure well had no complications Condition at Discharge: Condition at Discharge: Condition at discharge stable patient procedure well had no complications. Recommend continued light duty at work until results of today's injection are known and if significantly improved will increase work duties as tolerated. KERRY MAK MD Oct 27, 2019 10:13
== END | disposition home or self-care (01) ==
LOC: PNCL 08:53
PROVIDERS: ATTEND Anesthesiology
DX: M51.16 Intervertebral disc disorders with radiculopathy, lumbar region (principal); E03.9 Hypothyroidism, unspecified; K21.9 Gastro-esophageal reflux disease without esophagitis; Z88.8 Allergy status to other drugs, medicaments and biological substances; Z79.82 Long term (current) use of aspirin; Z79.899 Other long term (current) drug therapy
CPT/HCPCS: 64483; J1040; J3490; Q9965

== ENCOUNTER → 2019-12-05 | Outpatient (CLI) | payer OTHER ==
[~2019-12-05] MED LIST changes: -BUPIVACAINE MPF 0.25% 10 ML VIAL. ONE; -IOHEXOL 180 MG/ML 10 ML VIAL. ONE; -methylPREDNISolone ACETATE 80 MG/ML VIAL. ONE
== END | disposition home or self-care (01) ==
LOC: LAB 07:33
PROVIDERS: ATTEND Internal Medicine Gastroenterology
DX: R19.7 Diarrhea, unspecified (principal)
CPT/HCPCS: 87493; 87505

== ENCOUNTER → 2020-01-03 | Outpatient (CLI) | payer OTHER ==
[~2020-01-03] MED LIST changes: +0.9 % SODIUM CHLORIDE 10 ML DISP.SYRIN. ID ONE; +GADOTERATE 5 MMOL/10ML VIAL. INT ART ONE; +IOHEXOL 300 MG/ML 100ML VIAL. INT ART ONE; +LIDOCAINE 1% Multi-Dose 20 ML VIAL. ID ONE
--- NOTE | 2020-01-03 14:00 | KCIC ---
Study: MRI arthrogram of the left hip INDICATION: Hip pain. Left leg numbness. COMPARISON: CT abdomen/pelvis 07/06/2019 TECHNIQUE: Multiplanar MR imaging of the left hip performed after the intra-articular injection of gadolinium. The details of the procedure, to include the volume of contrast administered, are described in a separate report. FINDINGS: Bones: No fracture or focally aggressive marrow signal at the left hip or seen throughout the rest of the pelvis on the full [id number] coronal STIR sequence. Femoral head/neck offset is within normal limits. Lateral center edge angle measured on the coronal T1 sequence is within the broad range of normal at 38 degrees. Labrum/cartilage: Nondisplaced tear at the base of the anterior labrum such as seen on image 14 series 5. No high-grade or full-thickness chondral defect. Ligamentum teres: Intact. Greater trochanteric bursa: Unremarkable. Musculotendinous: Intact gluteus medius and minimus tendons. Unremarkable iliopsoas, rectus femoris femoris, common hamstring and adductors. Symmetric muscular bulk and signal. Miscellaneous: No synovitis or loose body at the left hip joint. No abnormality seen along the sciatic nerve bundle. Normal ischiofemoral space. IMPRESSION: 1. Suspected subtle nondisplaced tear along the base of the anterior labrum. No focal chondral defect. No morphologic changes that would suggest femoroacetabular impingement. 2. No tendon tear or significant tendinopathy. Electronically signed by: LAUREL VITAL MD (01/03/2020 1:57 PM) [id number]
--- NOTE | 2020-01-04 08:42 | KCIC ---
Study: Fluoroscopically guided arthrogram of the left hip for MRI Indication: Acetabular impingement syndrome. Pain and numbness. Contrast: 5 cc Omnipaque 300 Technique: A timeout was performed prior to beginning the procedure in order to confirm patient identity and laterality of the injection. The risks, benefits and alternatives of the procedure were discussed. Utilizing sterile technique, fluoroscopic guidance and local anesthesia with 1% lidocaine, the left hip was accessed utilizing a 22-gauge, 3.5" spinal needle. Confirmation of needle position was obtained with a small amount of radiopaque contrast. Subsequently, 12 cc of a mixture containing 5 cc lidocaine, 15 cc saline and 0.1 cc Clariscan was injected. There were no immediate post procedure complications. Fluoroscopy time: 26 seconds Number of images obtained: 2 Impression: Technically successful fluoroscopic guided arthrogram of the left hip without immediate postprocedure complication. Electronically signed by: LAUREL VITAL MD (01/04/2020 8:39 AM) [id number]
== END ==
LOC: KCIC 09:08
PROVIDERS: ATTEND Physical Medicine & Rehabilitation Sports Medicine
DX: M25.852 Other specified joint disorders, left hip (principal); F41.9 Anxiety disorder, unspecified; F32.9 Major depressive disorder, single episode, unspecified; K21.9 Gastro-esophageal reflux disease without esophagitis; Z88.8 Allergy status to other drugs, medicaments and biological substances; Z79.899 Other long term (current) drug therapy
CPT/HCPCS: 27093; 73525; 73722; A9575; J3490; Q9967

== ENCOUNTER → 2020-10-24 | Outpatient (CLI) | payer OTHER ==
[~2020-10-24] MED LIST changes: -0.9 % SODIUM CHLORIDE 10 ML DISP.SYRIN. ID ONE; -GADOTERATE 5 MMOL/10ML VIAL. INT ART ONE; -IOHEXOL 300 MG/ML 100ML VIAL. INT ART ONE; -LIDOCAINE 1% Multi-Dose 20 ML VIAL. ID ONE; -OMEP40CA45 PO; +OMEP40CA7 PO; -PHEN37.5 PO; +PHEN37.59 PO
--- NOTE | 2020-10-24 10:05 | RAD ---
EXAM: Left lower extremity venous Doppler. HISTORY: Left lower extremity pain/swelling. COMPARISON: None. FINDINGS: Grayscale and Doppler analysis of the left lower extremity deep venous system was performed with graded compression and augmentation. The common femoral, greater saphenous, superficial femoral , popliteal and calf veins were assessed. There is no evidence of deep venous thrombosis. IMPRESSION: 1. No evidence of deep venous thrombosis. Electronically signed by: Sushila Perez MD (10/24/2020 10:03 AM) [id number]
== END ==
LOC: US 09:02
PROVIDERS: ATTEND Family Medicine
DX: M79.605 Pain in left leg (principal)
CPT/HCPCS: 93971

== ENCOUNTER → 2021-08-04 | Day surgery (SDC) | payer OTHER ==
[~2021-08-04] VITALS: Ht 162.6 cm; Wt 89.8 kg
[~2021-08-04] MED LIST changes: +AMIT10TA PO; +FLUO20TA11 PO; +IV RINGERS,LACTATED 1000ML 1,000 ML IV SCH; +MELO15TA23 PO; +PHEN37.53 PO; +PROG200C10 PO; +TOPI50TA8 PO
[2021-08-04 13:50] VITALS: BP 114/77
--- NOTE | 2021-08-04 14:51 | PDOC4 ---
PROCEDURE Procedure EGD/biopsies Indication: heartburn/epigastric and LUQ pain. Meds: per anesthesia Findings: E--Partly-healed, probably grade B, reflux at 39cm. G--Mild prepyloric erythema, biopsies from antrum and fundus. D--Normal to second portion. Aris. well. IMP: GERD REC: Continue PPI. Await biopsies. F/u in 2 weeks. DAKOTA ROCK MD August 04, 2021 14:51
[2021-08-04 15:11] VITALS: BP 102/59
--- NOTE | 2021-08-06 16:08 | PATHOLOGY ---
[facility] Accession Number: [id number] . 01 Material submitted: . PART A: stomach - ANTRUM BIOPSY PART B: gastrointestinal site - GASTRIC FUNDUS BIOPSY . 01 Clinical history: . N/V . 02 Diagnosis: A. Gastric biopsies, antrum: - Congestion and slight chronic inflammation. . B. Gastric biopsies, gastric fundus: - No significant pathologic abnormalities. . (JPM:fitness professional; 08/06/2021) MBR 08/06/2021 1327 Local . 02 Comment: Sections of the gastric antral biopsy reveal segments of gastric antral/body transition mucosa showing congestion and slight chronic inflammation. A properly controlled immunoperoxidase stain for Helicobacter is negative for Helicobacter organisms. . Sections of the gastric fundic biopsy reveal segments of gastric fundic mucosa. There is no significant inflammation. A properly controlled immunoperoxidase stain for Helicobacter is negative for Helicobacter organisms. . (JPM:ricky; 08/06/2021) . . Special stains performed: Immunoperoxidase stain for Helicobacter on A1 and B1 . 02 Electronically signed: . Gianni Torres MD, Pathologist NPI- [id number] . 01 Gross description: . A. The specimen is received in formalin, labeled "Idalmis Sanderson, antrum biopsy". Received are two segments of pale garcia tissue measuring 0.2 and 0.8 cm in maximum dimensions. The specimen is submitted entirely in cassette A1. . B. The specimen is received in formalin, labeled "Idalmis Sanderson, gastric fundus biopsy". Received are three segments of pale garcia tissue ranging in size from 0.2-0.6 cm in maximum dimensions. The specimen is submitted entirely in cassette B1. (CAA; 08/05/2021) QAC/QAC 08/05/2021 1544 Local . 02 Pathologist provided ICD-10: K29.50, R11.2 . 02 CPT . 071786, 910819, [id number] Specimen Comment: A courtesy copy of this report has been sent to [phone], [phone] Specimen Comment: [id number] Specimen Comment: Report sent to / DR PHAM Performed at: [address] [facility], [place] [id number] MD Miguel Angel Lau MD Phone: [phone] [facility]formed at: [facility] [address] [place], [place] [id number] MD Gianni Torres MD Phone: [phone]
== END | disposition home or self-care (01) ==
LOC: ENDOS 13:17
PROVIDERS: ATTEND Internal Medicine Gastroenterology
DX: R10.12 Left upper quadrant pain (principal); R10.13 Epigastric pain; K21.00 Gastro-esophageal reflux disease with esophagitis, without bleeding; K29.50 Unspecified chronic gastritis without bleeding; R11.2 Nausea with vomiting, unspecified; K31.89 Other diseases of stomach and duodenum; E78.00 Pure hypercholesterolemia, unspecified; F41.9 Anxiety disorder, unspecified; F32.9 Major depressive disorder, single episode, unspecified; E03.9 Hypothyroidism, unspecified; Z90.49 Acquired absence of other specified parts of digestive tract; Z90.710 Acquired absence of both cervix and uterus; Z98.51 Tubal ligation status; Z98.890 Other specified postprocedural states; Z79.899 Other long term (current) drug therapy; Z72.89 Other problems related to lifestyle; Z88.1 Allergy status to other antibiotic agents; Z88.2 Allergy status to sulfonamides; Z88.8 Allergy status to other drugs, medicaments and biological substances
CPT/HCPCS: 43239; 88305; 88342